=== PATIENT | male | born 1955 | race Caucasian/White ===

== ENCOUNTER → 2017-05-22 | Outpatient (CLI) | payer BC ==
[2017-05-22 08:00] LABS: Basophils % (A) 1 %; CH 28.2; CHCM 34.1; Eosinophils # (A) 0.2 k/uL (0-0.7); Eosinophils % (A) 3 %; HCT 41.6 % (39.0-53.0); HDW 3.23; HGB 13.6 gm/dL (13.0-17.5); Luc # (Auto) 0.14; Luc % (Auto) 2; Lymphocytes % (A) 26 %; MCH 27.2 pg (25.0-35.0); MCHC 32.8 g/dL (31.0-37.0); Mean Platelet Volume 7.2; Monocytes # (A) 0.5 k/uL (0-1.0); Monocytes % (A) 7 %; Neutrophils # (A) 4.8 k/uL (1.3-7.7); Neutrophils % (A) 63 %; RBC 5.01 m/uL (4.30-5.90); RDW 15.1 % (11.5-15.5); WBC 7.6 k/uL (3.8-10.6); WBC (Perox) 7.45
[2017-05-22 08:23] LABS: ALT 29 U/L (21-72); AST 16 U/L (17-59); Alkaline Phosphatase 79 U/L (38-126); Anion Gap 12 mmol/L; Blood Urea Nitrogen 22 mg/dL (9-20); Calcium 9.7 mg/dL (8.4-10.2); Carbon Dioxide 27 mmol/L (22-30); Chloride 103 mmol/L (98-107); Cholesterol 171 mg/dL (<200); Glucose 94 mg/dL (74-99); HDL Cholesterol 34 mg/dL (40-60); Non-African American GFR(MDRD) >60 (>60 ml/min/1.73 sqM); Potassium 4.3 mmol/L (3.5-5.1); Sodium 142 mmol/L (137-145); Total Bilirubin 0.5 mg/dL (0.2-1.3); Total Protein 7.1 g/dL (6.3-8.2)
== END | disposition home or self-care (01) ==
LOC: LABWHC1 07:30
PROVIDERS: ATTEND Family Medicine
DX: Z00.00 Encounter for general adult medical examination without abnormal findings (principal); R21 Rash and other nonspecific skin eruption; D64.9 Anemia, unspecified; Z79.899 Other long term (current) drug therapy
CPT/HCPCS: 36415; 80053; 80061; 84443; 85025

== ENCOUNTER → 2017-09-19 | Outpatient (CLI) | payer BC ==
[2017-09-19 10:32] LABS: Anion Gap 12 mmol/L; Blood Urea Nitrogen 22 mg/dL (9-20); Calcium 9.7 mg/dL (8.4-10.2); Carbon Dioxide 30 mmol/L (22-30); Chloride 103 mmol/L (98-107); Glucose 95 mg/dL (74-99); Potassium 4.4 mmol/L (3.5-5.1); Sodium 145 mmol/L (137-145)
== END | disposition home or self-care (01) ==
LOC: LABWHC1 09:53
PROVIDERS: ATTEND Family Medicine
DX: S72.22XD Displaced subtrochanteric fracture of left femur, subsequent encounter for closed fracture with routine healing (principal); Z23 Encounter for immunization; V83.5XXD Driver of special industrial vehicle injured in nontraffic accident, subsequent encounter
CPT/HCPCS: 36415; 80048

== ENCOUNTER 2017-11-30 08:39 | Emergency (ER) | payer BC ==
[2017-11-30 08:54] VITALS: BP 155/76; PULSE 74; RESP 16; TEMP 98.4
[2017-11-30] MEDS ORDERED: SODIUM CHLORIDE 0.9% 1,000 ML IV STA (09:01)
[2017-11-30 09:35] LABS: Basophils % (A) 1 %; Eosinophils # (A) 0.1 k/uL (0-0.7); Eosinophils % (A) 1 %; HCT 42.6 % (39.0-53.0); HGB 14.2 gm/dL (13.0-17.5); Lymphocytes # (A) 1.3 k/uL (1.0-4.8); Lymphocytes % (A) 18 %; MCH 26.5 pg (25.0-35.0); MCHC 33.4 g/dL (31.0-37.0); MCV 79.2 fL (80.0-100.0); Monocytes # (A) 0.4 k/uL (0-1.0); Monocytes % (A) 6 %; Neutrophils # (A) 5.3 k/uL (1.3-7.7); Neutrophils % (A) 73 %; Platelet Count 225 k/uL (150-450); RBC 5.38 m/uL (4.30-5.90); RDW 14.3 % (11.5-15.5); WBC 7.2 k/uL (3.8-10.6)
[2017-11-30 09:44] LABS: Albumin 4.2 g/dL (3.5-5.0); Calcium 9.6 mg/dL (8.4-10.2); Total Bilirubin 0.5 mg/dL (0.2-1.3); Total Protein 7.1 g/dL (6.3-8.2)
--- NOTE | 2017-11-30 09:44 | XR ---
EXAMINATION TYPE: XR KUB DATE OF EXAM: 11/30/2017 9:30 AM CLINICAL HISTORY: Gross hematuria for 2 days per patient. Abdominal pain not further specified per o rder. TECHNIQUE: Two Upright KUB images of the abdomen are obtained. COMPARISON: None. FINDINGS: Scattered gas is seen in non-distended small bowel loops. Gas and fecal material is seen in non-distended colon. Round and oval densities in pelvis favor phleboliths. There is partial visualiz ation of postsurgical change in the left proximal femur. No pneumoperitoneum is seen. Lung bases are clear. IMPRESSION: Overall nonobstructive bowel gas pattern. No definite nephrolithiasis.
[2017-11-30 09:47] LABS: Partial Thromboplastin Time 23.1 sec (22.0-30.0); Prothrombin Time 10.1 sec (9.0-12.0)
[2017-11-30 09:56] LABS: RBC,Urine >182 /hpf (0-5); WBC,Urine 116 /hpf (0-5)
[2017-11-30 09:59] LABS: Appearance,Urine Bloody (Clear); Color,Urine Red
--- NOTE | 2017-11-30 11:01 | ED ---
Male Urogenital HPI - General Chief complaint: Urogenital Stated complaint: HEMATURIA Time Seen by Provider: 11/30/17 08:55 Source: patient, RN notes reviewed Mode of arrival: ambulatory Limitations: no limitations - History of Present Illness Initial comments: 62-year-old male presents emergency from chief complaint hematuria. Patient dizziness and symptoms yesterday but worsened today. Patient does complain of some pain at the tip of his refill. Patient denies any abdominal pain no flank pain. Patient is not taking any blood thinners. Patient denies any nausea vomiting diarrhea constipation. Denies any melena or hematochezia. Patient states that he's never had any like this in the past. Patient offers no other complaints. - Related Data Home Medications Medication Instructions Recorded Confirmed Allopurinol [Zyloprim] 300 mg PO DAILY 06/03/16 11/30/17 Valsartan/Hydrochlorothiazide 1 tab PO DAILY 06/03/16 11/30/17 [Valsartan-Hctz 160-12.5 mg Tab] Aspirin 81 mg PO DAILY 11/30/17 11/30/17 Previous Rx's Medication Instructions Recorded Ciprofloxacin HCl [Cipro] 500 mg PO Q12HR #14 tablet 11/30/17 Allergies Allergy/AdvReac Type Severity Reaction Status Date / Time No Known Allergies Allergy Verified 11/30/17 09:06 Review of Systems ROS Statement: Those systems with pertinent positive or pertinent negative responses have been documented in the HPI. ROS Other: All systems not noted in ROS Statement are negative. Past Medical History Past Medical History: Hypertension Additional Past Medical History / Comment(s): gout History of Any Multi-Drug Resistant Organisms: None Reported Past Surgical History: Joint Replacement, Orthopedic Surgery Additional Past Surgical History / Comment(s): hand knee replacement femur Smoking Status: Never smoker Past Alcohol Use History: Occasional Past Drug Use History: None Reported General Exam Limitations: no limitations General appearance: alert, in no apparent distress Head exam: Present: atraumatic, normocephalic, normal inspection Neck exam: Present: normal inspection, full ROM. Absent: tenderness, meningismus, lymphadenopathy Respiratory exam: Present: normal lung sounds bilaterally. Absent: respiratory distress, wheezes, rales, rhonchi, stridor Cardiovascular Exam: Present: regular rate, normal rhythm, normal heart sounds. Absent: systolic murmur, diastolic murmur, rubs, gallop, clicks GI/Abdominal exam: Present: soft, normal bowel sounds. Absent: distended, tenderness, guarding, rebound, rigid Back exam: Absent: CVA tenderness (R), CVA tenderness (L) Skin exam: Present: warm, dry, intact, normal color. Absent: rash Course Vital Signs 11/30/17 08:51 Temperature 98.4 F Pulse Rate 74 Respiratory 16 Rate Blood Pressure 155/76 O2 Sat by Pulse 96 Oximetry Medical Decision Making - Medical Decision Making 62-year-old male presented from for hematuria. Patient does have gross hematuria though there is moderate amount of bacteria. Patient has no abdominal pain or flank pain for kidney stone. Patient was treated for urinary tract infection at this time advised to follow-up with urology for cystoscopy and further workup. We did discuss that there is concerns with hematuria for kidney or bladder cancer. This is the importance of following up with urology for further workup. Return parameters were discussed. - Lab Data Result diagrams: 11/30/17 09:10 11/30/17 09:10 Lab Results 11/30/17 11/30/17 11/30/17 Range/Units 09:10 09:10 09:10 WBC 7.2 (3.8-10.6) k/uL RBC 5.38 (4.30-5.90) m/uL Hgb 14.2 (13.0-17.5) gm/dL Hct 42.6 (39.0-53.0) % MCV 79.2 L (80.0-100.0) fL MCH 26.5 (25.0-35.0) pg MCHC 33.4 (31.0-37.0) g/dL RDW 14.3 (11.5-15.5) % Plt Count 225 (150-450) k/uL Neutrophils % 73 % Lymphocytes % 18 % Monocytes % 6 % Eosinophils % 1 % Basophils % 1 % Neutrophils # 5.3 (1.3-7.7) k/uL Lymphocytes # 1.3 (1.0-4.8) k/uL Monocytes # 0.4 (0-1.0) k/uL Eosinophils # 0.1 (0-0.7) k/uL Basophils # 0.0 (0-0.2) k/uL PT 10.1 (9.0-12.0) sec INR 1.0 (<1.2) APTT 23.1 (22.0-30.0) sec Sodium 144 (137-145) mmol/L Potassium 4.0 (3.5-5.1) mmol/L Chloride 103 (98-107) mmol/L Carbon Dioxide 28 (22-30) mmol/L Anion Gap 13 mmol/L BUN 22 H (9-20) mg/dL Creatinine 1.10 (0.66-1.25) mg/dL Est GFR (CKD-EPI)AfAm 83 (>60 ml/min/1.73 sqM) Est GFR (CKD-EPI)NonAf 72 (>60 ml/min/1.73 sqM) Glucose 112 H (74-99) mg/dL Calcium 9.6 (8.4-10.2) mg/dL Total Bilirubin 0.5 (0.2-1.3) mg/dL AST 17 (17-59) U/L ALT 27 (21-72) U/L Alkaline Phosphatase 90 (38-126) U/L Total Protein 7.1 (6.3-8.2) g/dL Albumin 4.2 (3.5-5.0) g/dL Urine Color Urine Appearance (Clear) Urine RBC (0-5) /hpf Urine WBC (0-5) /hpf 11/30/17 Range/Units 09:10 WBC (3.8-10.6) k/uL RBC (4.30-5.90) m/uL Hgb (13.0-17.5) gm/dL Hct (39.0-53.0) % MCV (80.0-100.0) fL MCH (25.0-35.0) pg MCHC (31.0-37.0) g/dL RDW (11.5-15.5) % Plt Count (150-450) k/uL Neutrophils % % Lymphocytes % % Monocytes % % Eosinophils % % Basophils % % Neutrophils # (1.3-7.7) k/uL Lymphocytes # (1.0-4.8) k/uL Monocytes # (0-1.0) k/uL Eosinophils # (0-0.7) k/uL Basophils # (0-0.2) k/uL PT (9.0-12.0) sec INR (<1.2) APTT (22.0-30.0) sec Sodium (137-145) mmol/L Potassium (3.5-5.1) mmol/L Chloride (98-107) mmol/L Carbon Dioxide (22-30) mmol/L Anion Gap mmol/L BUN (9-20) mg/dL Creatinine (0.66-1.25) mg/dL Est GFR (CKD-EPI)AfAm (>60 ml/min/1.73 sqM) Est GFR (CKD-EPI)NonAf (>60 ml/min/1.73 sqM) Glucose (74-99) mg/dL Calcium (8.4-10.2) mg/dL Total Bilirubin (0.2-1.3) mg/dL AST (17-59) U/L ALT (21-72) U/L Alkaline Phosphatase (38-126) U/L Total Protein (6.3-8.2) g/dL Albumin (3.5-5.0) g/dL Urine Color Red Urine Appearance Bloody (Clear) Urine RBC >182 H (0-5) /hpf Urine WBC 116 H (0-5) /hpf Disposition Clinical Impression: Hematuria, UTI (urinary tract infection) Disposition: HOME SELF-CARE Condition: Stable Instructions: Urinary Tract Infection in Men (ED) Additional Instructions: Please return to the Emergency Department if symptoms worsen or any other concerns. Prescriptions: Ciprofloxacin HCl [Cipro] 500 mg PO Q12HR #14 tablet Referrals: Ari Montano MD [Primary Care Provider] - 1-2 days Fareed Montes De Oca MD [STAFF PHYSICIAN] - 1-2 days Time of Disposition: 11:01
== END 2017-11-30 11:26 | disposition home or self-care (01) ==
LOC: EC 08:39
DX: N39.0 Urinary tract infection, site not specified (principal); I10 Essential (primary) hypertension; Z79.82 Long term (current) use of aspirin; Z79.899 Other long term (current) drug therapy
CPT/HCPCS: 36415; 74018; 80053; 81001; 85025; 85610; 85730; 87086; 96360; 96361; 99283

== ENCOUNTER → 2017-12-11 | Outpatient (CLI) | payer BC ==
--- NOTE | 2017-12-11 09:09 | US ---
"EXAMINATION TYPE: US kidneys/renal and bladder DATE OF EXAM: 12/11/2017 COMPARISON: NONE CLINICAL HISTORY: Gross Hematuria R31.0. One episode of gross hematuria 2 weeks ago, and another epid ote this am of gross hematuria. EXAM MEASUREMENTS: Right Kidney: 13.2 x 8.5 x 7.5 cm Left Kidney: 12.6 x 5.8 x 5.3 cm Post Void Residual Volume: 435.0 mL patient states unable to urinate this am. Right Kidney: large solid mass with vascularity measures 6.7 x 6.7 x 6.9 cm Left Kidney: No hydronephrosis or masses seen Bladder: 2.4 x 2.2 x 2.9 cm mass Bilateral Jets seen: no Post Void Residual: 435.0 ml, significant retention. IMPRESSION: 1. Right renal mass may be within the medullary region. This could be within the collecting system. T ransitional cell carcinoma and renal cell carcinoma should be considered. 2. Urinary bladder mass. 3. Additional workup is recommended. Consider contrast CT abdomen pelvis. A [place] level critical message alert has been initiated for Ari Montano MD via the [employer] | Critical Results System on 12/11/2017 9:06 AM. This message alert has been sent to Ari Montano MD via the preferences provided by the clinician for the receipt of Radiology Critical Findings. Nv ssage ID [id number]."
== END | disposition home or self-care (01) ==
LOC: RADUSWWP 08:06
PROVIDERS: ATTEND Family Medicine
DX: N28.89 Other specified disorders of kidney and ureter (principal); N32.89 Other specified disorders of bladder; R31.0 Gross hematuria
CPT/HCPCS: 76770

== ENCOUNTER → 2017-12-17 | Outpatient (CLI) | payer BC ==
--- NOTE | 2017-12-18 11:49 | CT ---
EXAMINATION TYPE: CT urogram wo/w con DATE OF EXAM: 12/17/2017 COMPARISON: Ultrasound kidneys 12/11/2017 HISTORY: Hematuria CT DLP: 3285 mGycm, Automated Exposure Control for Dose Reduction was Utilized. CONTRAST: CT scan of the abdomen and pelvis is performed with oral and without and with IV Contrast, patient in jected with 100 mL of Isovue 300. FINDINGS: There is a small hiatal hernia. LUNG BASES: No significant abnormality is appreciated. LIVER/GB: Liver shows low attenuation possibly due to hepatic steatosis, gallbladder is normal PANCRE : No significant abnormality is seen. SPLEEN: No significant abnormality is seen. ADRENALS: No significant abnormality is seen. KIDNEYS: There is a large lower pole right renal mass which correlates with the ultrasound findings. I mass shows heterogeneous enhancement with central low attenuation following contrast administration , the mass measures approximately 9 cm x 8 cm x 8.5 cm. There is distortion and mass effect on the re nal collecting system and ureter on the right, upper pole collecting system shows hydronephrotic rodriguez ge. No definite thrombus is identified within the inferior vena cava although there is suggestion of some heterogeneous density involving the right renal vein extending towards the inferior vena cava, d ifficult to exclude some tumor thrombus within the right renal vein. Some collateral vasculature is s een at the level of the right renal hilum and medial to the right kidney, some local mass effect pres ent on the inferior vena cava. No evident ureteral calculus. There is some prominence of soft tissue extending along the ureteral course of the proximal and mid extent which is indeterminate on the righ t. BOWEL: The appendix is normal. Diverticular changes associated with the sigmoid colon PROSTATE/SEMINAL VESICLES: The prostate appears enlarged. LYMPH NODES: No greater than 1cm abdominal or pelvic lymph nodes are appreciated. OSSEOUS STRUCTURES: Postop change noted to the left hip. Degenerative disc changes are present in the visualized spine, bilateral spondylolysis present at L5. OTHER: The urinary bladder shows some heterogeneous density towards the right ureterovesical orifice, this may correspond to the mass seen on ultrasound. IMPRESSION: Findings compatible with renal cell carcinoma on the right. Difficult to exclude bladder mass. Findings along the right ureter as described. Additional findings above.
== END | disposition home or self-care (01) ==
LOC: RADCTMAIN 17:31
PROVIDERS: ATTEND Urology
DX: R31.0 Gross hematuria (principal)
CPT/HCPCS: 74178; 74400; Q9967

== ENCOUNTER → 2017-12-22 | Outpatient (CLI) | payer BC ==
[2017-12-22 15:12] LABS: Basophils % (A) 0 %; Eosinophils # (A) 0.2 k/uL (0-0.7); Eosinophils % (A) 2 %; HCT 40.7 % (39.0-53.0); HGB 13.6 gm/dL (13.0-17.5); Lymphocytes # (A) 1.8 k/uL (1.0-4.8); Lymphocytes % (A) 23 %; MCH 26.6 pg (25.0-35.0); MCHC 33.5 g/dL (31.0-37.0); MCV 79.4 fL (80.0-100.0); Mean Platelet Volume 6.8; Monocytes # (A) 0.5 k/uL (0-1.0); Monocytes % (A) 6 %; Neutrophils # (A) 5.4 k/uL (1.3-7.7); Neutrophils % (A) 69 %; Platelet Count 241 k/uL (150-450); RBC 5.12 m/uL (4.30-5.90); RDW 13.9 % (11.5-15.5); WBC 7.9 k/uL (3.8-10.6)
[2017-12-22 15:22] LABS: Appearance,Urine Clear (Clear); Bilirubin,Urine Negative (Negative); Blood,Urine Negative (Negative); Color,Urine Light Yellow; Glucose,Urine (UA) Negative (Negative); Ketones,Urine Negative (Negative); Leukocyte Esterase,Urine Negative (Negative); Nitrite,Urine Negative (Negative); Protein,Urine Negative (Negative); Specific Gravity,Urine 1.007 (1.001-1.035); Urobilinogen,Urine <2.0 mg/dL (<2.0)
[2017-12-22 15:23] LABS: Calcium 9.2 mg/dL (8.4-10.2); Potassium 3.8 mmol/L (3.5-5.1); Total Bilirubin 0.4 mg/dL (0.2-1.3); Total Protein 6.7 g/dL (6.3-8.2)
== END | disposition home or self-care (01) ==
LOC: LABPAT 14:35
PROVIDERS: ATTEND Urology
DX: Z01.812 Encounter for preprocedural laboratory examination (principal); R31.9 Hematuria, unspecified; C64.1 Malignant neoplasm of right kidney, except renal pelvis; I10 Essential (primary) hypertension; R06.02 Shortness of breath; Z79.899 Other long term (current) drug therapy; Z01.818 Encounter for other preprocedural examination
CPT/HCPCS: 36415; 80053; 81003; 85025; 86850; 86900; 86901; 87086; 93005

== ENCOUNTER → 2017-12-22 | Outpatient (CLI) | payer BC ==
--- NOTE | 2017-12-22 16:19 | XR ---
EXAMINATION TYPE: XR chest 2V DATE OF EXAM: 12/22/2017 COMPARISON: pre surgical HISTORY: pre surgical TECHNIQUE: Frontal and lateral views of the chest are obtained. FINDINGS: There is no focal air space opacity, pleural effusion, or pneumothorax seen. The cardiac silhouette size is within normal limits. The osseous structures are intact. IMPRESSION: No acute cardiopulmonary process.
== END | disposition home or self-care (01) ==
LOC: RADXRMAIN 14:14
PROVIDERS: ATTEND Urology
DX: Z01.818 Encounter for other preprocedural examination (principal); I10 Essential (primary) hypertension; R06.02 Shortness of breath
CPT/HCPCS: 71046; 93005

== ENCOUNTER 2017-12-30 05:43 | Inpatient (IN) | payer BC ==
[2017-12-25 17:51] VITALS: BMI 32.8
[~2017-12-30 05:43] MED LIST: Pre Op ABX Message 1 EACH MISC MISCELLANE ONE
[2017-12-30] MEDS ORDERED: MORPHINE SULFATE 4 MG/0.8 ML SYRINGE (INJ) IV PRN (05:58)
[2017-12-30] MEDS ORDERED: ONDANSETRON ODT 4 MG TAB PO ONE (05:58)
[2017-12-30] MEDS ORDERED: MIDAZOLAM 2 MG/2 ML VIAL IV PRN (05:58)
[2017-12-30] MEDS ORDERED: DEXAMETHASONE SOD PHOSPHATE 10 MG/ML 1 ML VIAL IV ONE (05:58)
[2017-12-30] MEDS ORDERED: fentaNYL (PF) 50 MCG/ML 2 ML AMP ONE ×2 (07:09→07:33)
[2017-12-30] MEDS ORDERED: LIDOCAINE 1% 20 ML VIAL (10MG/ML) FOR IV START INTRADERMA ONE (07:10)
[2017-12-30] MEDS: LACTATED RINGERS 1,000 ML IV SCH (07:10)
[2017-12-30] MEDS ORDERED: GLYCOPYRROLATE 0.2 MG/ML 2 ML VIAL ONE (07:33)
[2017-12-30] MEDS ORDERED: PROPOFOL 10 MG/ML 20 ML VIAL IV ONE (07:33)
[2017-12-30] MEDS ORDERED: ONDANSETRON 4 MG/2 ML VIAL ONE (07:33)
[2017-12-30] MEDS ORDERED: ROCURONIUM BROMIDE 10 MG/ML 10 ML VIAL IV ONE (07:33)
[2017-12-30] MEDS ORDERED: SUCCINYLCHOLINE CHLORIDE 100 MG/5 ML SYR IV ONE (07:33)
[2017-12-30] MEDS ORDERED: LIDOCAINE 1% INJ 10MG/ML (20 ML MDV) ONE (07:33)
[2017-12-30] MEDS ORDERED: NEOSTIGMINE 1 MG/ML 10 ML VIAL ONE (07:33)
[2017-12-30] MEDS ORDERED: ePHEDrine SULFATE/0.9% NACL/PF 50 MG/5 ML SYRINGE IV ONE (07:33)
[2017-12-30] MEDS ORDERED: PHENYLEPHRINE-0.9% NACL SYG 1 MG/10 ML SYRINGE ONE (07:33)
[2017-12-30] MEDS ORDERED: MIDAZOLAM 2 MG/2 ML VIAL ONE (07:33)
[2017-12-30] MEDS ORDERED: LACTATED RINGERS 1,000 ML IV ONE ×2 (08:18)
[2017-12-30] MEDS ORDERED: NALOXONE 0.4 MG/ML 1 ML VIAL IV PRN (08:50)
[2017-12-30] MEDS ORDERED: BUPIVACAINE (PF) 0.5% 50 ML, HYDROMORPHONE (PF) 5 MG in SODIUM CHLORIDE 0.9% 200 ML EPIDURAL PRN (08:52)
--- NOTE | 2017-12-30 10:23 | P.OP ---
Date of Procedure: 12/30/17 Preoperative Diagnosis: Right renal mass Postoperative Diagnosis: Same Procedure(s) Performed: Right radical nephrectomy Anesthesia: GETA, epidural Surgeon: Ajit Ortega Activities Leader #1: Fareed Montes De Oca Estimated Blood Loss (ml): 300 Pathology: other (Right kidney) Condition: stable Disposition: PACU Indications for Procedure: The patient is a 62-year-old gentleman with hematuria. Hematuria workup identified a 9 cm anterior middle pole right renal mass. There is no evidence of obvious metastases. He comes for a right radical nephrectomy Description of Procedure: Patient is brought to the operating suite. He is been given an epidural followed by general endotracheal anesthesia. He is prepped and draped sterilely. A Lopez catheters introduced sterilely. A right chevron incision is made. The rectus and oblique fascias are opened. The peritoneum was opened. The liver is inspected and is normal. The kidney and tumor felt in the anterior kidney. The colon was reflected medially by incising its attachments. I do a [place] maneuver to reflect the duodenum medially. I come down on the vena cava. The tumor is easily seen. The vena cava was cleaned off. The gonadal vein is taken between 2-0 silk ties and transected. I March up and identify the right renal vein. The right renal vein is cleaned. A 2-0 silk ties placed around it. Fortunately right renal arteries inferior to the renal vein. It is identified and 2-0 silk ties placed around it and tied. I then doubly ligate the renal vein and transect it. I then doubly ligate the renal artery and transected. There is a lumbar vein that they branched into the kidney that had to be taken between hemoclips. Dissect the lymph node tissue off the vena cava and the body wall on the medial aspect of the kidney. In November inferiorly down to the ureter and gonadal vein and taken between 2-0 silk ties. Posterior and lateral to the kidney and elevated off the posterior peritoneum. I March superiorly the renal vein and dissect the connective tissue and lymphatics between hemoclips. Inferior to the adrenal gland and dissect the kidney off fat using hemoclips. I then detached the kidney from the peritoneum below the liver. He needs delivered from the wound. Us is approximately 300 mL. No obvious positive nodes although there was a fair amount of lymphatic then of the procedure I irrigate thoroughly. Abdomen was closed in 3 layers with #1 Vicryl. The skin is stapled. The patient is awakened and returned recovery room good condition. Blood loss is proximal 300 mL. tissue.
[2017-12-30] MEDS: DEXTROSE 5%-0.45% NACL 1,000 ML IV SCH (12:32)
--- NOTE | 2017-12-31 06:50 | P.PN ---
Subjective Progress Note Date: 12/31/17 The patient is in his first postoperative day from a right radical nephrectomy. His vital signs are stable. His urine output is good. His pain is controlled with epidural catheter. The wound is dry. He is tolerating clear liquids. I will ambulate the patient. He'll use incentive spirometry. We'll continue with clear liquids. Objective - Vital Signs Vital signs: Vital Signs Temp 98.1 F 12/31/17 00:53 Pulse 57 L 12/31/17 00:53 Resp 15 12/31/17 00:55 BP 102/59 12/31/17 00:53 Pulse Ox 96 12/31/17 00:53 Intake & Output 12/30/17 12/30/17 12/31/17 06:59 18:59 06:59 Intake Total 3675 3846 Output Total 700 250 Balance 2975 3596 Weight 95.254 kg Intake: IV 1750 Intake, IV Titration 375 2046 Amount Bupivacaine (Pf) 0.5% 50 46 ml Hydromorphone (Pf) 5 mg In Sodium Chloride 0.9 % 200 ml @ Per Protocol EPIDURAL .Q0M PRN Rx#: [id number] Dextrose 5%-0.45% NaCl 1, 375 2000 000 ml @ 125 mls/hr IV . Q8H RAMÓN Rx#:[id number] Oral 1550 1800 Output: Urine 400 250 Estimated Blood Loss 300 Other: Voiding Method Indwelling Catheter Indwelling Catheter # Voids 350
[2017-12-31] MEDS: DEXTROSE 5%-0.45% NACL 1,000 ML IV SCH ×3 (07:09→17:04)
[2017-12-31] MEDS: LACTATED RINGERS 1,000 ML IV SCH (07:09)
[2017-12-31] MEDS: diphenhydrAMINE 50 MG/ML 1 ML VIAL IVP PRN ×3 (08:20→23:04)
[2017-12-31] MEDS: ALLOPURINOL 300 MG TAB PO SCH (08:23)
[2017-12-31] MEDS: HYDROCHLOROTHIAZIDE 12.5 MG CAP PO SCH (08:24)
[2017-12-31] MEDS: VALSARTAN 160 MG TAB PO SCH (08:24)
--- NOTE | 2017-12-31 10:49 | P.PN ---
Progress Note - Text Date: 12/31/2017 Time: 07:08 The patient is status post, right nephrectomy, postoperative day number 1 The patient has no complaints of nausea vomiting or headache. The patient does not complain of any lower extremity numbness or weakness. The epidural is running at 5 mL per hour. VAS 0-10 The epidural will be maintained and adjusted as needed.
[2017-12-31] MEDS: NICOTINE 14MG/24HR PATCH TRANSDERM SCH (18:08)
[2018-01-01] MEDS: DEXTROSE 5%-0.45% NACL 1,000 ML IV SCH ×3 (04:31→21:22)
[2018-01-01] MEDS: LACTATED RINGERS 1,000 ML IV SCH (04:31)
--- NOTE | 2018-01-01 07:18 | P.PN ---
Progress Note - Text Date: 01/01/18Time: 0708 The patient is status post, right nephrectomy, postoperative day number 2 The patient has no complaints of nausea vomiting or headache. The patient does not complain of any lower extremity numbness or weakness. The epidural is running at 5 mL per hour. VAS 0-10. The epidural will be maintained and adjusted as needed.
--- NOTE | 2018-01-01 07:36 | P.PN ---
Subjective Progress Note Date: 01/01/18 The patient is in his second postoperative day from a right radical nephrectomy. He is doing well. Vital signs are stable. His urine output is good. His pain is controlled with the epidural. His wound looks good. He is tolerated a liquid diet. I will advance his diet to regular diet and he will ambulate. Mildly epidural catheter be removed. I anticipate discharge in 24- 48 hours. Pathology is pending. Objective - Vital Signs Vital signs: Vital Signs Temp 97.7 F 12/31/17 23:10 Pulse 73 12/31/17 23:10 Resp 16 12/31/17 23:10 BP 128/65 12/31/17 23:10 Pulse Ox 95 12/31/17 23:10 Intake & Output 12/31/17 01/01/18 01/01/18 18:59 06:59 18:59 Intake Total 240 1465 Output Total 1100 3210 Balance -860 -1745 Intake: Intake, IV Titration 875 Amount Dextrose 5%-0.45% NaCl 1, 875 000 ml @ 125 mls/hr IV . Q8H [facility] Rx#:[id number] Oral 240 590 Output: Urine 1100 3210 Uretheral (Lopez) 1100 3210 Other: Voiding Method Indwelling Catheter Indwelling Catheter
[2018-01-01] MEDS: HYDROCHLOROTHIAZIDE 12.5 MG CAP PO SCH (08:55)
[2018-01-01] MEDS: NICOTINE 14MG/24HR PATCH TRANSDERM SCH (08:55)
[2018-01-01] MEDS: VALSARTAN 160 MG TAB PO SCH (08:55)
[2018-01-01] MEDS: ALLOPURINOL 300 MG TAB PO SCH (08:55)
[2018-01-01] MEDS: diphenhydrAMINE 50 MG/ML 1 ML VIAL IVP PRN ×2 (15:06→21:36)
[2018-01-02] MEDS: diphenhydrAMINE 50 MG/ML 1 ML VIAL IVP PRN (03:48)
[2018-01-02] MEDS: DEXTROSE 5%-0.45% NACL 1,000 ML IV SCH ×2 (03:50→10:43)
[2018-01-02 07:23] VITALS: PULSE 66; RESP 14; TEMP 99.2
--- NOTE | 2018-01-02 08:21 | P.PN ---
Progress Note - Text Date: 01/02/2018 Time: 07:09 The patient is status post right nephrectomy, postoperative day number[] The patient has no complaints of nausea vomiting or headache. The patient does not complain of any lower extremity numbness or weakness. The epidural is running at[ 5] mL per hour. VAS of 0-10. The epidural will be discontinued this morning, pain meds will be provided to the patient by the service.
[2018-01-02 08:41] VITALS: BP 127/80
[2018-01-02] MEDS: ALLOPURINOL 300 MG TAB PO SCH (08:42)
[2018-01-02] MEDS: VALSARTAN 160 MG TAB PO SCH (08:42)
[2018-01-02] MEDS: HYDROCHLOROTHIAZIDE 12.5 MG CAP PO SCH (08:42)
[2018-01-02] MEDS: NICOTINE 14MG/24HR PATCH TRANSDERM SCH (08:42)
[2018-01-02] MEDS ORDERED: HYDROcodone/APAP 5-325MG 1 EACH TAB PO PRN (10:01)
--- NOTE | 2018-01-02 10:05 | P.DS ---
Providers Date of admission: 12/30/17 05:43 Attending physician: Ajit Ortega Primary care physician: Ari Jefferson Hospital Course: The patient was admitted the hospital for surgery to a right renal mass. He underwent a right radical nephrectomy without difficulty. This was done 2017. His diet has been advanced and tolerated. His pain is been under control with an epidural and is been switched to oral medication. His wound is healing nicely. The catheter be removed this morning if he voids okay will be discharged home later today. Discharge home care of family regular diet limited activity. His postoperative laboratory examination is appropriate. He' ll be given a prescription for [place]. He'll follow-up in the office next week for staple removal. Pathology report is pending upon discharge. Patient Condition at Discharge: Good Plan - Discharge Summary Discharge Rx Participant: No New Discharge Prescriptions: New HYDROcodone/APAP 5-325MG [[place] 5-325] 1 tab PO Q4HR PRN #18 tab PRN Reason: Pain Control No Action Allopurinol [Zyloprim] 300 mg PO DAILY Valsartan/Hydrochlorothiazide [Valsartan-Hctz 160-12.5 mg Tab] 1 tab PO DAILY Discharge Medication List Allopurinol [Zyloprim] 300 mg PO DAILY 06/03/16 [History] Valsartan/Hydrochlorothiazide [Valsartan-Hctz 160-12.5 mg Tab] 1 tab PO DAILY [History] HYDROcodone/APAP 5-325MG [[place] 5-325] 1 tab PO Q4HR PRN #18 tab 01/02/18 [Rx] Follow up Appointment(s)/Referral(s): Ajit Ortega MD [STAFF PHYSICIAN] - 01/07/18 Discharge Disposition: HOME SELF-CARE
--- NOTE | 2018-01-05 12:33 | CDI ---
Last Revision, August 2017 Documentation Clarification Form Date: 01/05/18 From: Lucy Granado Phone: If you have a question regarding this query, please contact Carrol Woo at [phone] between 8am and 5pm Admit Date: 12/30/2017 5:43:00 AM Patient Name: Dago Zelaya Visit Number: [id number] Discharge Date: 01/02/18 ATTENTION: The Clinical Documentation Specialists (CDI) and [facility] Coding Staff appreciate your assistance in clarifying documentation. Please respond to the clarification below the line at the bottom and electronically sign. The CDI & [facility] Coding staff will review the response and follow-up if needed. Please note: Queries are made part of the Legal Health Record. If you have any questions, please contact the author of this message via ITS. Dr. 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 Two hilar lymph nodes negative for metastasis. Documentation states: Right renal mass. Clinical Indicators: Urinary frequency, dysuria and hematuria. Treatment: Right radical nephrectomy In your professional opinion, can you clarify the diagnosis related to the above findings? Renal mass benign Renal cell carcinoma Other (please specify) Unable to determine renal cell carcinoma MTDD
== END 2018-01-02 15:48 | disposition home or self-care (01) | DRG 658 ==
LOC: 2ORMAIN 05:43 → 3SUR 10:32
PROVIDERS: ADMIT Urology; ATTEND Urology
PROC: 0TT00ZZ Resection of Right Kidney, Open Approach (ICD-10-PCS; principal; 2017-12-30 07:30)
DX: C64.1 Malignant neoplasm of right kidney, except renal pelvis (principal); I10 Essential (primary) hypertension; F17.210 Nicotine dependence, cigarettes, uncomplicated; K21.9 Gastro-esophageal reflux disease without esophagitis; M10.9 Gout, unspecified; Z79.82 Long term (current) use of aspirin; Z79.899 Other long term (current) drug therapy; Z96.652 Presence of left artificial knee joint; Z80.51 Family history of malignant neoplasm of kidney
CPT/HCPCS: 86850; 86900; 86901; 88307

== ENCOUNTER → 2018-05-29 | Outpatient (CLI) | payer BC ==
[2018-05-29 10:16] LABS: T4, Free (Free Thyroxine) 0.67 ng/dL (0.78-2.19)
[2018-05-29 10:30] LABS: Prostate Specific Antigen 3.09 ng/mL (0.00-4.00)
[2018-05-29 10:35] LABS: Potassium 5.3 mmol/L (3.5-5.1)
[2018-05-29 10:36] LABS: Total Bilirubin 0.8 mg/dL (0.2-1.3); Total Protein 7.1 g/dL (6.3-8.2); Uric Acid 6.7 mg/dL (3.5-8.5)
[2018-05-29 10:49] LABS: Basophils % (A) 1 %; Eosinophils # (A) 0.2 k/uL (0-0.7); Eosinophils % (A) 3 %; HCT 40.1 % (39.0-53.0); HGB 13.3 gm/dL (13.0-17.5); Lymphocytes # (A) 1.3 k/uL (1.0-4.8); Lymphocytes % (A) 22 %; MCH 28.1 pg (25.0-35.0); MCHC 33.2 g/dL (31.0-37.0); MCV 84.6 fL (80.0-100.0); Mean Platelet Volume 8.8; Monocytes # (A) 0.5 k/uL (0-1.0); Monocytes % (A) 8 %; Neutrophils % (A) 66 %; Platelet Count 173 k/uL (150-450); RBC 4.73 m/uL (4.30-5.90); RDW 14.1 % (11.5-15.5); WBC 6.2 k/uL (3.8-10.6)
== END | disposition home or self-care (01) ==
LOC: LABWHC1 08:23
PROVIDERS: ATTEND Family Medicine
DX: Z00.00 Encounter for general adult medical examination without abnormal findings (principal); I10 Essential (primary) hypertension; Z51.81 Encounter for therapeutic drug level monitoring; Z12.5 Encounter for screening for malignant neoplasm of prostate
CPT/HCPCS: 36415; 80053; 80061; 84153; 84439; 84443; 84550; 85025

== ENCOUNTER → 2018-08-24 | Outpatient (CLI) | payer BC ==
--- NOTE | 2018-08-24 15:37 | XR ---
EXAMINATION TYPE: XR chest 2V DATE OF EXAM: 08/24/2018 COMPARISON: 12/22/2017 TECHNIQUE: PA and lateral views submitted. HISTORY: Follow-up nephrectomy FINDINGS: The lungs are clear and there is no pneumothorax, pleural effusion, or focal pneumonia. Hypertrophi c and degenerative change of the vertebral column. Atherosclerotic change of the aorta. Hyperinflatio n suggests COPD. IMPRESSION: 1. No acute process.
== END | disposition home or self-care (01) ==
LOC: RADXRMAIN 14:53
PROVIDERS: ATTEND Urology
DX: D41.00 Neoplasm of uncertain behavior of unspecified kidney (principal)
CPT/HCPCS: 71046

== ENCOUNTER → 2019-03-15 | Outpatient (CLI) | payer BC ==
--- NOTE | 2019-03-15 15:56 | XR ---
EXAM TYPE: LUMBAR SPINE X RAY SERIES COMPARISON: NONE HISTORY: Lower back pain TECHNIQUE: 4 views are submitted. FINDINGS: Alignment is anatomic. The pedicles are intact. The transverse processes are intact. There is no s pondylolysis or spondylolisthesis. Surgical clips are seen in the abdomen. There is multilevel hyper trophic and degenerative change. Spina bifida occulta lumbosacral junction. Anterior hypertrophic spu rring noted. IMPRESSION: 1. Multilevel hypertrophic and degenerative disc disease. Foraminal encroachment L4-5 and L5-S1 suspe cted. Recommend follow-up MRI..
== END | disposition home or self-care (01) ==
LOC: RADXRMAIN 15:35
PROVIDERS: ATTEND Family Medicine
DX: M51.36 Other intervertebral disc degeneration, lumbar region (principal)
CPT/HCPCS: 72110

== ENCOUNTER → 2019-05-20 | Outpatient (CLI) | payer BC ==
[2019-05-20 17:12] LABS: HCT 39.5 % (39.0-53.0); HGB 13.7 gm/dL (13.0-17.5); MCH 28.9 pg (25.0-35.0); MCHC 34.6 g/dL (31.0-37.0); MCV 83.4 fL (80.0-100.0); Mean Platelet Volume 6.7; Platelet Count 240 k/uL (150-450); RBC 4.74 m/uL (4.30-5.90); RDW 14.2 % (11.5-15.5); WBC 9.2 k/uL (3.8-10.6)
[2019-05-20 17:17] LABS: Albumin 4.3 g/dL (3.5-5.0); Calcium 9.1 mg/dL (8.4-10.2); Potassium 4.2 mmol/L (3.5-5.1); Total Bilirubin 0.4 mg/dL (0.2-1.3); Total Protein 7.1 g/dL (6.3-8.2)
--- NOTE | 2019-05-20 17:29 | XR ---
EXAMINATION TYPE: XR chest 2V DATE OF EXAM: 05/20/2019 COMPARISON: Prior chest x-ray dated 08/24/2018 HISTORY: Bladder cancer TECHNIQUE: Frontal and lateral views of the chest are obtained. FINDINGS: There is no focal air space opacity, pleural effusion, or pneumothorax seen. The cardiac silhouette size is within normal limits. The osseous structures are intact. IMPRESSION: No acute cardiopulmonary process.
--- NOTE | 2019-05-22 20:35 | CT ---
EXAMINATION TYPE: CT abdomen pelvis wo con DATE OF EXAM: 05/20/2019 COMPARISON: 12/17/2017 HISTORY: 63-year-old male f/u renal and bladder ca CT DLP: 971.3 mGycm. Automated exposure control for dose reduction was used. TECHNIQUE: Contiguous axial scanning of the abdomen and pelvis without IV contrast. Coronal and sagit leonard reconstructions performed. FINDINGS: Heart normal size without pericardial effusion. Lung bases clear without pleural effusion. Tiny hernia. Lack of IV contrast limits assessment of the solid abdominal viscera, lymph nodes, and vascular struc tures. Noncontrast appearance of the liver, gallbladder, adrenal glands, left kidney, and pancreas show no g ross abnormality. Spleen upper limits of normal in size at 13.3 cm. Right kidney is surgically absent. Multiple surgical clips in the nephrectomy bed and paracaval regio n. No suspicious nodularity in the nephrectomy bed. Scattered numerous nonenlarged and borderline to mildly enlarged mesenteric lymph nodes are unchanged measuring up to 1 cm refer to coronal image 40. No progressive lymphadenopathy. Small ventral midline supraumbilical omental fat-containing hernia measures 3.5 cm wide with the abdo quan wall defect measuring 1.8 cm wide. No dilated small bowel, free fluid, or free air. Normal appendix. Mild stool burden. Sigmoid diverticulosis. No pericolonic inflammatory change. Bladder partially distended. Prostate gland measures 4.9 cm wide. Multiple pelvic phleboliths. No abn ormal fluid collection in the pelvis or pelvic lymphadenopathy. Scattered small iliac chain lymph nod es are unchanged. Bones: Antegrade intramedullary nail within the proximal left femur with hip screw fixation. Mild deg enerative change of both hips and SI joints. Bilateral L5 pars defects with grade 1 anterolisthesis a t L5-S1. Superior endplate fracture of T12 new from 12/17/2017 and not clearly seen on 03/15/2019 radiog raph. No retropulsion into the spinal canal. Overall 15 % anterior height loss. No significant surrou nding paravertebral hematoma or swelling. IMPRESSION: 1. Status post right nephrectomy. No CT evidence for locoregional recurrence. Limited overall assess ment due to lack of IV contrast. 2. Scattered nonenlarged and borderline sized mesenteric lymph nodes are unchanged from 12/17/2017 [place]ellogg ggesting chronic postinflammatory etiology. 3. Small omental fat-containing supraumbilical hernia measuring 3.5 cm wide. 4. Sigmoid diverticulosis. 5. Superior endplate fracture of T12 not clearly seen on the 03/15/2019 radiographs. Possibly a subacu te fracture given the lack of surrounding soft tissue swelling. Overall 15% height loss without retro pulsion. Clinically correlate.
== END | disposition home or self-care (01) ==
LOC: RADCTMAIN 15:27
PROVIDERS: ATTEND Urology
DX: C67.1 Malignant neoplasm of dome of bladder (principal); K57.30 Diverticulosis of large intestine without perforation or abscess without bleeding; K42.9 Umbilical hernia without obstruction or gangrene; Z90.5 Acquired absence of kidney
CPT/HCPCS: 36415; 71046; 74176; 80053; 85027

== ENCOUNTER → 2021-05-11 | Outpatient (CLI) | payer BC ==
[2021-05-11 08:48] LABS: Basophils % (A) 1 %; Eosinophils # (A) 0.1 k/uL (0-0.7); Eosinophils % (A) 2 %; HCT 42.1 % (39.0-53.0); HGB 14.5 gm/dL (13.0-17.5); Lymphocytes # (A) 1.5 k/uL (1.0-4.8); Lymphocytes % (A) 19 %; MCH 29.6 pg (25.0-35.0); MCHC 34.3 g/dL (31.0-37.0); MCV 86.3 fL (80.0-100.0); Mean Platelet Volume 7.1; Monocytes # (A) 0.5 k/uL (0-1.0); Monocytes % (A) 7 %; Neutrophils # (A) 5.3 k/uL (1.3-7.7); Neutrophils % (A) 70 %; Platelet Count 228 k/uL (150-450); RBC 4.88 m/uL (4.30-5.90); WBC 7.6 k/uL (3.8-10.6)
[2021-05-11 09:00] LABS: Uric Acid 6.8 mg/dL (3.5-8.5)
[2021-05-11 12:01] LABS: Chol/HDL Ratio 4.53; LDL Cholesterol,Calculated 94.8 mg/dL (0.0-131.0); VLDL Calculation 18.2 mg/dL (5.00-40.00)
[2021-05-11 12:09] LABS: PSA Annual Screen 3.6 ng/mL (0.0-4.0)
== END | disposition home or self-care (01) ==
LOC: LAB 08:32
PROVIDERS: ATTEND Family Medicine
DX: Z00.00 Encounter for general adult medical examination without abnormal findings (principal); Z13.220 Encounter for screening for lipoid disorders; Z13.31 Encounter for screening for depression; Z12.12 Encounter for screening for malignant neoplasm of rectum; Z71.3 Dietary counseling and surveillance; Z71.82 Exercise counseling
CPT/HCPCS: 80061; 87522; 84443; 84550; 85025; G0103

== ENCOUNTER → 2021-10-04 | Outpatient (CLI) | payer BC ==
--- NOTE | 2021-10-06 20:51 | CT ---
EXAMINATION TYPE: CT knee RT ANGELICA bueno protocol DATE OF EXAM: 10/04/2021 COMPARISON: No radiographic correlation available HISTORY: 66-year-old male M17.11 Right knee osteoarthritis. TECHNIQUE: Contiguous axial scanning of the right knee, right hip, and right ankle without IV contras t. Coronal and sagittal reconstructions performed. Imaging performed for surgical planning purposes. CT DLP: 674.9 mGycm Automated exposure control for dose reduction was used. FINDINGS: Right hip: Prostatomegaly is 5.1 cm wide. Multiple pelvic phleboliths. Sigmoid diverticulosis. Mild degenerative change of both hips. Partially visualized antegrade intramedullary nail and screw fixation left hip. Bone island right femoral head. Right knee: Small knee joint effusion. Tricompartmental degenerative change. Greatest degree of joint space narro wing with marginal spurring, subchondral sclerosis, and subchondral cystic changes present in the med ial compartment. The medial meniscus may be torn and extruded. At least moderate degenerative change along the lateral aspect of the patellofemoral compartment with marginal spurring in association narr owing. Degenerative spurring of the lateral compartment. Extensor mechanism intact. Right ankle: Small posterior and plantar heel spurs. Tibiotalar joint is intact. Smooth delineation of the [place] s tendon. IMPRESSION: TRICOMPARTMENTAL OSTEOARTHROSIS, MODERATE TO SEVERE IN THE MEDIAL COMPARTMENT AND MODERATE TO SEVERE ALONG THE LATERAL ASPECT OF THE PATELLOFEMORAL COMPARTMENT. IMAGING FOR SURGICAL PLANNING PURPOSES.
== END | disposition home or self-care (01) ==
LOC: RADCTMAIN 15:30
PROVIDERS: ATTEND Orthopaedic Surgery
DX: Z01.818 Encounter for other preprocedural examination (principal); M17.11 Unilateral primary osteoarthritis, right knee

== ENCOUNTER → 2021-10-05 | Outpatient (CLI) | payer BC ==
[2021-10-05 10:36] LABS: Partial Thromboplastin Time 24.7 sec (22.0-30.0)
[2021-10-05 11:31] LABS: Appearance,Urine Clear (Clear); Bilirubin,Urine Negative (Negative); Blood,Urine Negative (Negative); Color,Urine Yellow; Glucose,Urine (UA) Negative (Negative); Ketones,Urine Negative (Negative); Leukocyte Esterase,Urine Trace (Negative); Mucus,Urine Rare /hpf; Nitrite,Urine Negative (Negative); Protein,Urine Negative (Negative); RBC,Urine <1 /hpf (0-5); Specific Gravity,Urine 1.023 (1.001-1.035); Squamous Epithelial Cell,Urine <1 /hpf (0-4); Urobilinogen,Urine <2.0 mg/dL (<2.0); WBC,Urine 5 /hpf (0-5)
[2021-10-05 16:15] LABS: INR 0.9 (<1.2); Prothrombin Time 10.3 sec (9.0-12.0)
[2021-10-05 19:01] LABS: HCT 42.8 % (39.6-50.0); HGB 13.6 g/dL (13.0-17.0); MCH 27.7 pg (27.0-32.0); MCHC 31.8 g/dL (32.0-37.0); MCV 87.2 fL (80.0-97.0); Platelet Count 239 X 10*3/uL (140-440); RBC 4.91 X 10*6/uL (4.40-5.60); RDW 13.2 % (11.5-14.5); WBC 6.58 X 10*3/uL (4.50-10.00)
[2021-10-05 19:06] LABS: African American GFR (CKD) 47.3 (60.0-200.0); Albumin 4.1 g/dL (3.8-4.9); Albumin/Globulin Ratio 1.54 (1.60-3.17); Anion Gap 12.4 mmol/L (10.00-18.00); BUN/Creat Ratio 16.05 Ratio (12.00-20.00); Blood Urea Nitrogen 27.6 mg/dL (9.0-27.0); Calcium 9.1 mg/dL (8.7-10.3); Carbon Dioxide 23.4 mmol/L (20.0-27.5); Globulin 2.6 g/dL (1.6-3.3); Non-African American GFR(CKD) 40.8 (60.0-200.0); Potassium 3.8 mmol/L (3.5-5.5); Total Bilirubin 0.3 mg/dL (0.30-1.20); Total Protein 6.7 g/dL (6.2-8.2)
== END | disposition home or self-care (01) ==
LOC: LABPAT 09:11
PROVIDERS: ATTEND Orthopaedic Surgery
DX: Z01.812 Encounter for preprocedural laboratory examination (principal); M17.11 Unilateral primary osteoarthritis, right knee
CPT/HCPCS: 80053; 81001; 85027; 85610; 85730; 87070; 93005

== ENCOUNTER 2021-10-25 08:48 | Day surgery (SDC) | payer BC ==
[2021-10-23 10:40] VITALS: BMI 32.8
[~2021-10-25 08:48] MED LIST changes: +ACETAMINOPHEN TAB 500 MG TAB PO PRN; +DEXAMETHASONE SOD PHOSPHATE 10 MG/ML 1 ML VIAL IV PRN; +DOCUSATE 100 MG CAP PO PRN; +FAMOTIDINE 20 MG/2 ML VIAL IVP PRN; +KETOROLAC 15 MG/ML 1 ML VIAL IVP PRN; +LACTATED RINGERS 1,000 ML IV SCH; +MIDAZOLAM 2 MG/2 ML VIAL IV PRN; +ONDANSETRON 4 MG/2 ML VIAL IVP PRN; -Pre Op ABX Message 1 EACH MISC MISCELLANE ONE; +TRANEXAMIC ACID 1,000 MG in SODIUM CHLORIDE 0.9% 100 ML IVPB PRN; +VANCOMYCIN 1,000 MG in SODIUM CHLORIDE 0.9% 250 ML IVPB PRN; +oxyCODONE ER 10 MG TAB.ER.12H PO PRN
[2021-10-25] MEDS ORDERED: MIDAZOLAM 2 MG/2 ML VIAL IVP ONE (10:00)
[2021-10-25] MEDS ORDERED: fentaNYL (PF) 50 MCG/ML 2 ML AMP IVP ONE (10:00)
[2021-10-25] MEDS ORDERED: SUCCINYLCHOLINE CHLORIDE 100 MG/5 ML SYR IV ONE (10:51)
[2021-10-25] MEDS ORDERED: ROPIVACAINE 5 MG/ML 30 ML VIAL ONE (10:51)
[2021-10-25] MEDS ORDERED: SODIUM CHLORIDE 0.9% (PF) 10 ML VIAL ONE (10:51)
[2021-10-25] MEDS ORDERED: TRANEXAMIC ACID 1,000 MG/10 ML VIAL ONE (10:51)
[2021-10-25] MEDS ORDERED: PROPOFOL 10 MG/ML 20 ML VIAL IV ONE (10:51)
[2021-10-25] MEDS ORDERED: MIDAZOLAM 2 MG/2 ML VIAL ONE (10:51)
[2021-10-25] MEDS ORDERED: LIDOCAINE 1% INJ 10MG/ML (20 ML MDV) ONE (10:51)
[2021-10-25] MEDS ORDERED: fentaNYL (PF) 50 MCG/ML 2 ML AMP ONE (10:51)
[2021-10-25] MEDS ORDERED: ePHEDrine 50 MG/ML 1 ML VIAL ONE (10:51)
--- NOTE | 2021-10-25 11:08 | P.ANPRN ---
Procedure Note - Anesthesia - Nerve Block Performed Right Adductor Canal Time Out Performed: Yes (:59) Date of Procedure: 10/25/21 Procedure Start Time: Procedure Stop Time: :08 Location of Patient: PreOp Indication: Acute Post-Operative Pain, Requested by Surgeon (Dr Powell) Sedation Type: Sedate with meaningful contact maintained Preparation: Sterile Prep Position: Supine Catheter: None Needle Types: Pajunk Needle Gauge: 21 Ultrasound used to visualize needle placement: Yes Ultrasound used to observe medication spread: Yes Injectate: 0.5% Ropivacaine (see comment for volume) (15cc + 5cc PF Normal saline) Blood Aspirated: No Pain Paresthesia on Injection Noted: No Resistance on Injection: Normal Image Stored and Saved: Yes Events: Uneventful and Well Tolerated
--- NOTE | 2021-10-25 11:09 | P.ANPRN ---
Procedure Note - Anesthesia - Nerve Block Performed Right iPack Date of Procedure: 10/25/21 Procedure Start Time: 11:09 Procedure Stop Time: 11:17 Location of Patient: PreOp Indication: Acute Post-Operative Pain, Requested by Surgeon (Dr Powell) Sedation Type: Sedate with meaningful contact maintained Preparation: Sterile Prep Position: Supine Catheter: None Needle Types: Pajunk Needle Gauge: 21 Ultrasound used to visualize needle placement: Yes Ultrasound used to observe medication spread: Yes Injectate: 0.5% Ropivacaine (see comment for volume) (15cc + 5cc PF Normal sa line) Blood Aspirated: No Pain Paresthesia on Injection Noted: No Resistance on Injection: Normal Image Stored and Saved: Yes Events: Uneventful and Well Tolerated
[2021-10-25] MEDS ORDERED: ceFAZolin 3,000 MG in SODIUM CHLORIDE 0.9% IRRIGATIO 3,000 ML IRRIGATION ONE (11:15)
--- NOTE | 2021-10-25 13:07 | P.OP ---
Date of Procedure: 10/25/21 Preoperative Diagnosis: 1. Right knee osteoarthritis, severe Postoperative Diagnosis: same Procedure(s) Performed: Right total knee arthroplasty Implants: 1. [place] triathlon CR size #4 femur 2. [place] triathlon size #4 universal tibial baseplate 3. [place] triathlon CS 10 mm polyethylene liner 4. Amanda triathlon 32 mm all polyethylene asymmetric patellar button Anesthesia: REUBENA, regional Surgeon: Jamie Powell Amr Physician #1: Stella Moore Estimated Blood Loss (ml): 100 IV fluids (ml): 1,200 Pathology: none sent Condition: stable Disposition: PACU Indications for Procedure: The patient is a very pleasant previously healthy 66-year-old male with a long- standing history of problems with his right knee. He failed over 1 year of nonsurgical treatment and had continued incapacitating and severe right knee pain due to severe arthritis. He met with me in the office to discuss treatment options. We discussed continued nonsurgical treatment versus surgery. Since it felt over 1 year nonsurgical treatment the patient requested to proceed with a total knee arthroplasty. We discussed the potential risks and complications at length in the office including but certainly not limited to risks of anesthesia, delayed wound healing, superficial wound necrosis, damage to local blood vessels or nerves, superficial infection, deep infection, stiffness, instability, aseptic loosening, patellofemoral complications, swelling, continued or worsened pain, need for further surgery, and inability to regain preinjury level of function, DVT, PE, other medical complications, dissatisfaction with surgical outcome, and possibly loss of life or limb. The patient voiced his understanding that while these are the most common complications other less common complications are possible. He provided his verbal and written consent to go forward with surgery. Description of Procedure: The patient was identified in preoperative holding and the correct operative extremity was verified and marked with a marker. I reviewed the consent form with the patient at length. All of their questions were answered. The patient was given a block by anesthesia. They were then brought back to the operating room. They were transferred onto the operating room table where a general anesthetic, preoperative antibiotics, and tranexamic acid were administered by anesthesia. A tourniquet was applied to the proximal aspect of the operative extremity. The contralateral extremity was padded under the heel and secured to the operating room table with a nonsterile blue towel and tape. The ipsilateral arm was carefully draped across the patient's chest and secured with a pillow and foam. A post was applied over the lateral aspect of the ipsilateral thigh and a bolster was placed under the ipsilateral foot. I verified that the operative extremity was stable and the knee was flexed to 90. The operative extremity was then placed in a leg gao, nonsterile drapes were applied, and the extremity was prepped and draped sterilely in the standard sterile fashion. Prior to starting surgery timeout was performed identifying the correct patient, operative extremity, and procedure. The leg was then elevated, exsanguinated with an Esmarch bandage, and the tourniquet was inflated. An anterior midline incision was made sharply with a scalpel. Once I had dissected deep to the superficial fascial layer medial and lateral flaps were elevated. A medial parapatellar arthrotomy was created. Upon opening the knee joint there were diffuse arthritic changes in all 3 compartments. The anterior horn of the medial meniscus were sharply released and a medial release was performed around the posterior medial corner of the knee to facilitate retractor placement. The fat pad was excised with electrocautery. The patella was found to be severely arthritic and a provisional cut was made with a sagittal saw to facilitate mobilization of the extensor mechanism during the procedure. Remnants of the ACL and PCL were then excised from the notch. 4 mm pins were then placed within the incision in the medial distal femur and proximal tibia. Arrays were applied to the pins and I verified they were completely tightened. The knee was then registered with the [employer] robot and manipulations in implant position were made to balance the knee and opitmize implant position. Using the Jake robotic saw all cuts were made in accordance with our plan. After all bony fragments had been removed the cuts were verified with the planar probe. The tibia was then subluxed forward and sized. The knee was brought into flexion and a lamina operations administrator was placed to allow removal of the meniscal remnants both medially and laterally as well as posterior osteophytes. Local anesthetic was then infiltrated around the joint capsule. Trial implants were then placed within the knee. Range of motion and collateral ligament tension was then evaluated. Adjustments in implant size and position were then made accordingly. Once the knee was felt to be appropriately balanced the Jake pins were removed. The patella was then recut, sized, and punched. A trial patellar button was then placed. With the trial components in place, the patella tracked midline. The femur was then drilled and the trial component removed. The trial tibial component was then appropriately rotated, pinned, and prepared for the keel. All trial components were then removed from the knee. The knee was thoroughly irrigated with pulsatile lavage. Cement was prepared via vacuum mixing in a bowl on the back table. I then hand pressurized cement into the femur and tibia and placed the implants beginning with the tibial base tray and poly liner, femoral component, and finally the patellar button. All extruded cement was removed including from the pin sites. Once the cement had hardened the knee was evaluated one final time with the final polyethylene liner in place. The knee had full extension and flexion and felt stable to varus and valgus stress throughout the arc of motion. The tourniquet was released and with the tourniquet down the patella tracked midline. All bleeders were controlled with electrocautery. The knee was then soaked for 3 minutes with a dilute Betadine soak. The knee was thoroughly irrigated using 3 L of sterile saline and pulsatile lavage. A deep drain was placed. The extensor mechanism was then reapproximated using pop off Vicryl sutures followed by a running barbed suture. The knee was then closed in layers with a 0 strata fix for the deep fascial layer, 2-0 strata fix for the superficial subcutaneous layer and Monocryl and Steri-Strips for the skin. A sterile dressing and drain sponge were applied. I verified that all instrument, sponge, and sharp counts were correct. The patient was then transferred off the operating room table, extubated, and brought to recovery having tolerated the procedure well. Stella Moore PA-C was required as a skilled geriatric assistant due to the complexity of the procedure for patient positioning, draping, retraction, placement of hardware, and closure of wound. PLAN: The patient can weight-bear as tolerated on the operative extremity. DVT prophylaxis with aspirin 81 mg twice a day based on preoperative risk stratification. Follow-up in the office in 2 weeks for wound check and x-rays of the knee including an AP and lateral.
[2021-10-25] MEDS ORDERED: NALOXONE 0.4 MG/ML 1 ML VIAL IV PRN (13:30)
[2021-10-25] MEDS ORDERED: bisacodyL 10 MG SUPP RECTAL PRN (13:30)
[2021-10-25] MEDS ORDERED: HYDROmorphone 1 MG/ML 1 ML SYRINGE IVP PRN (13:30)
[2021-10-25] MEDS ORDERED: HYDROmorphone 0.2 MG/1 ML SYRINGE IVP PRN ×2 (13:30)
[2021-10-25] MEDS ORDERED: MAGNESIUM HYDROXIDE 2,400 MG/10 ML CUP PO PRN (13:30)
[2021-10-25] MEDS ORDERED: NA PHOS,M-B/NA PHOS,DI-BA 133 ML ENEMA RECTAL PRN (13:30)
[2021-10-25] MEDS ORDERED: ONDANSETRON 4 MG/2 ML VIAL IVP PRN (13:30)
[2021-10-25] MEDS ORDERED: TEMAZEPAM 15 MG CAP PO PRN (13:30)
[2021-10-25] MEDS: HYDROmorphone 0.5 MG/0.5 ML SYRINGE IVP PRN ×4 (13:36→14:26)
--- NOTE | 2021-10-25 14:02 | XR ---
EXAMINATION TYPE: XR knee limited RT DATE OF EXAM: 10/25/2021 COMPARISON: NONE TECHNIQUE: Two views submitted HISTORY: Post op FINDINGS: There is a prosthetic knee in near anatomic alignment. There is soft tissue edema and emphysema. [place] rgical drain noted. IMPRESSION: 1. Postoperative change. Appears in near-anatomic alignment
[2021-10-25] MEDS: LACTATED RINGERS 1,000 ML IV SCH (17:30)
[2021-10-25] MEDS: HYDROcodone/APAP 7.5-325MG 1 EACH TAB PO PRN (17:35)
[2021-10-25] MEDS: ASPIRIN 81 MG PO SCH (19:19)
[2021-10-25] MEDS ORDERED: SENNOSIDES-DOCUSATE SODIUM 1 EACH TAB PO SCH (21:00)
[2021-10-26] MEDS: HYDROcodone/APAP 7.5-325MG 1 EACH TAB PO PRN ×3 (03:03→13:14)
[2021-10-26] MEDS: LACTATED RINGERS 1,000 ML IV SCH ×2 (03:14→08:14)
[2021-10-26 07:19] VITALS: BP 124/67; PULSE 66; RESP 18; TEMP 97.4
[2021-10-26] MEDS: ASPIRIN 81 MG PO SCH (08:13)
[2021-10-26 08:54] LABS: Basophils # (A) 0.02 X 10*3/uL (0.00-0.10); Basophils % (A) 0.1 %; Eosinophils # (A) 0 X 10*3/uL (0.04-0.35); Eosinophils % (A) 0 %; HCT 36.8 % (39.6-50.0); HGB 12.1 g/dL (13.0-17.0); Immature Grans, Automated 0.2 %; Lymphocytes # (A) 0.83 X 10*3/uL (0.90-5.00); MCH 28.3 pg (27.0-32.0); MCHC 32.9 g/dL (32.0-37.0); MCV 86.2 fL (80.0-97.0); Mean Platelet Volume 9.8 fL (9.5-12.2); Monocytes # (A) 1.11 X 10*3/uL (0.20-1.00); Monocytes % (A) 6.8 %; NRBC Per 100 WBC 0 /100 WBCS (0.0-0.0); Neutrophils # (A) 14.44 X 10*3/uL (1.80-7.70); Neutrophils % (A) 87.9 %; Platelet Count 227 X 10*3/uL (140-440); RBC 4.27 X 10*6/uL (4.40-5.60); RDW 13.4 % (11.5-14.5); WBC 16.44 X 10*3/uL (4.50-10.00)
[2021-10-26] MEDS ORDERED: MELOXICAM 7.5 MG TAB PO SCH (09:00)
--- NOTE | 2021-10-26 10:33 | P.DS ---
Providers Expected date of discharge: 10/26/21 Attending physician: Jamie Powell Consults: 10/25/21 13:30 Consult Physician Routine Consulting Provider: Ari Montano Consult Reason/Comments: Medical management Do you want consulting provider notified?: Yes Primary care physician: Ari Montano - Discharge Diagnosis(es) (1) Primary osteoarthritis of right knee Current Visit: Yes Status: Acute (2) Status post right knee replacement Current Visit: Yes Status: Acute Hospital Course: This is a pleasant 66-year-old male last seen in our office with complaints of right knee pain. Patient has known history of degenerative arthritis of the right knee and presented to discuss options. After discussion and consideration, patient elected to proceed with a total knee arthroplasty of the right knee. The patient was seen preoperatively and medically cleared for surgery by his primary care physician. The patient was admitted to [facility] and underwent right total knee arthroplasty on 10/25/[address] Powell. The procedure was performed without complications or sequelae. The patient has done well postoperatively. The patient was seen and evaluated at bedside today and denies any new complaints. Pain is reasonably controlled. Dressing is clean dry and intact. Incision looks fine with no erythema or active drainage. The hemovac drain was removed without difficulty and tip was intact. Calf is soft and nontender. The patient has full foot and ankle motion without difficulty. Patient's right lower extremity is neurovascular intact. Patient is orthopedically stable for discharge to home today. Pertinent Studies: Laboratory Tests 10/26/21 03:46 WBC 16.44 H RBC 4.27 L Hgb 12.1 L Hct 36.8 L Neutrophils # 14.44 H Lymphocytes # 0.83 L Monocytes # 1.11 H Eosinophils # 0 L Patient Condition at Discharge: Stable Plan - Discharge Summary Discharge Rx Participant: Yes New Discharge Prescriptions: New Aspirin [Adult Low Dose Aspirin EC] 81 mg PO BID #1 tab HYDROcodone/APAP 7.5-325MG [[place] 7.5-325] 1 - 2 tab PO Q6HR PRN #32 tab PRN Reason: Pain Sennosides-Docusate Sodium [Senokot-S] 1 tab PO BID #60 tablet Gabapentin [Neurontin] 300 mg PO BID 5 Days #10 cap Ondansetron Odt [Zofran Odt] 4 mg PO Q8HR PRN #14 tab PRN Reason: Nausea No Action allopurinoL [Zyloprim] 300 mg PO DAILY Valsartan/Hydrochlorothiazide [Valsartan-Hctz 160-12.5 mg Tab] 1 tab PO DAILY Ergocalciferol [Vitamin D2 (1250 Mcg = 82195 Iu)] 1,250 mcg PO WEEKLY Zinc 50 mg PO DAILY Discharge Medication List Valsartan/Hydrochlorothiazide [Valsartan-Hctz 160-12.5 mg Tab] 1 tab PO DAILY 06/03/16 [History] allopurinoL [Zyloprim] 300 mg PO DAILY 06/03/16 [History] Ergocalciferol [Vitamin D2 (1250 Mcg = 15136 Iu)] 1,250 mcg PO WEEKLY 10/23/21 [History] Zinc 50 mg PO DAILY 10/23/21 [History] Aspirin [Adult Low Dose Aspirin EC] 81 mg PO BID #1 tab 10/25/21 [Rx] Gabapentin [Neurontin] 300 mg PO BID 5 Days #10 cap 10/25/21 [Rx] HYDROcodone/APAP 7.5-325MG [[place] 7.5-325] 1 - 2 tab PO Q6HR PRN #32 tab 10/25/21 [Rx] Ondansetron Odt [Zofran Odt] 4 mg PO Q8HR PRN #14 tab 10/25/21 [Rx] Sennosides-Docusate Sodium [Senokot-S] 1 tab PO BID #60 tablet 10/25/21 [Rx] Follow up Appointment(s)/Referral(s): [facility], [NON-STAFF] - ([facility] will call you to schedule your in home physical therapy visits. ) Jamie Powell MD [Medical Doctor] - 2 Weeks Activity/Diet/Wound Care/Special Instructions: May bear wt as tolerated w walker. May shower 2 days post op. Leave Optifoam dressing intact 7 days. Discharge Disposition: HOME WITH HOME HEALTH SERVICES
--- NOTE | 2021-10-26 14:11 | P.HPIM ---
History of Present Illness H&P Date: 10/26/21 Chief Complaint: Elective total knee replacement Elective right total knee arthroplasty, patient was admitted awake and alert for same underwent right total knee arthroplasty secondary to severe arthritic process Postoperative consultation and evaluation were unremarkable Review of Systems Cardiovascular: Reports as per HPI Respiratory: Reports as per HPI Gastrointestinal: Reports as per HPI Genitourinary: Reports as per HPI Musculoskeletal: Reports limitation of motion, Reports muscle weakness, Reports myalgias (Significant right knee arthritis arthrosis with pain and reduction of range of motion) Integumentary: Reports as per HPI Neurological: Reports as per HPI Past Medical History Past Medical History: Cancer, Hypertension, Osteoarthritis (OA) Additional Past Medical History / Comment(s): gout, hx. kidney cancer History of Any Multi-Drug Resistant Organisms: None Reported Past Surgical History: Joint Replacement, Orthopedic Surgery Additional Past Surgical History / Comment(s): hand surg., arthroscopy x1 left knee replacement, ORIF left femur, right nephrectomy Past Anesthesia/Blood Transfusion Reactions: No Reported Reaction Past Psychological History: No Psychological Hx Reported Smoking Status: Smoker, current status unknown Past Alcohol Use History: Occasional Past Drug Use History: None Reported - Past Family History Mother Family Medical History: No Reported History Medications and Allergies Home Medications Medication Instructions Recorded Confirmed Type Valsartan/Hydrochlorothiazide 1 tab PO DAILY 06/03/16 10/23/21 History [Valsartan-Hctz 160-12.5 mg Tab] allopurinoL [Zyloprim] 300 mg PO DAILY 06/03/16 10/23/21 History Ergocalciferol [Vitamin D2 (1250 1,250 mcg PO WEEKLY 10/23/21 10/23/21 History Mcg = 85071 Iu)] Zinc 50 mg PO DAILY 10/23/21 10/23/21 History Aspirin [Adult Low Dose Aspirin EC] 81 mg PO BID #1 tab 10/25/21 Rx Gabapentin [Neurontin] 300 mg PO BID 5 Days #10 cap 10/25/21 Rx HYDROcodone/APAP 7.5-325MG [[place] 1 - 2 tab PO Q6HR PRN #32 tab 10/25/21 Rx 7.5-325] Ondansetron Odt [Zofran Odt] 4 mg PO Q8HR PRN #14 tab 10/25/21 Rx Sennosides-Docusate Sodium 1 tab PO BID #60 tablet 10/25/21 Rx [Senokot-S] Allergies Allergy/AdvReac Type Severity Reaction Status Date / Time No Known Allergies Allergy Verified 10/23/21 14:08 Physical Exam Osteopathic Statement: *. No significant issues noted on an osteopathic structural exam other than those noted in the History and Physical/Consult. Vitals: Vital Signs Temp Pulse Pulse Resp BP BP Pulse Ox 10/26/21 07:18 97.4 F L 66 18 124/67 97 10/26/21 00:57 97.9 F 72 16 116/70 95 10/25/21 19:17 98.2 F 100 16 143/74 97 10/25/21 15:48 97.7 F 85 18 131/81 96 10/25/21 15:01 80 16 113/66 97 10/25/21 14:47 79 1 L 124/72 97 10/25/21 14:30 75 18 119/63 95 10/25/21 14:17 72 18 119/63 92 L 10/25/21 14:00 69 18 121/64 92 L Intake and Output 10/25/21 10/26/21 10/26/21 22:59 06:59 14:59 Intake Total 180 1200 Output Total 200 1140 Balance -20 60 Intake: Intake, IV Titration 1200 Amount Lactated Ringers 1,000 ml 1100 @ 100 mls/hr IV .Q10H [facility] Rx#:[id number] ceFAZolin 2 gm In Sodium 100 Chloride 0.9% 50 ml @ 100 mls/hr IVPB Q8H [facility] Rx#: [id number] Oral 180 Output: Drainage 40 Right Knee 40 Urine 200 1100 Other: Voiding Method Toilet # Bowel Movements 0 General: [Patient awake, alert and oriented times 3. Patient in no acute distress.] HEENT: [PERRL. EOMI. No pharyngeal erythema or exudate.] Neck: [No adenopathy.] Cardiac: [Heart regular in rate and rhythm. No S3. No S4. No clicks, rubs. No murmur.] Lungs: [Clear to auscultation bilaterally.] Abdomen: [No mass. No organomegaly. Bowel sounds presnt and normoactive in all 4 quadrants.] Extremes: Dressing right knee mild postop swelling dressing appears clean and dry : Normal male genitalia Musculoskeletal: [No joint erythema, edema or tenderness.] Skin: [No rash.] Neurologic: [No lateralizing deficits. CN II - XII grossly intact.] Lymphatic: [No adenopathy.] Results CBC & Chem 7: 10/26/21 03:46 Labs: Abnormal Lab Results - Last 24 Hours (Table) 10/26/21 Range/Units 03:46 WBC 16.44 H (4.50-10.00) X 10*3/uL RBC 4.27 L (4.40-5.60) X 10*6/uL Hgb 12.1 L (13.0-17.0) g/dL Hct 36.8 L (39.6-50.0) % Neutrophils # 14.44 H (1.80-7.70) X 10*3/uL Lymphocytes # 0.83 L (0.90-5.00) X 10*3/uL Monocytes # 1.11 H (0.20-1.00) X 10*3/uL Eosinophils # 0 L (0.04-0.35) X 10*3/uL Thrombosis Risk Factor Assmnt - Choose All That Apply Each Factor Represents 1 point: Obesity (BMI >25) Each Risk Factor Represents 2 Points: Age 61-74 years Each Risk Factor Represents 5 Points: Elective major lower extremity arthoplasty Thrombosis Risk Factor Assessment Total Risk Factor Score: 8 Thrombosis Risk Factor Assessment Level: High Risk Assessment and Plan (1) Primary osteoarthritis of right knee Status: Acute Code(s): M17.11 - UNILATERAL PRIMARY OSTEOARTHRITIS, RIGHT KNEE SNOMED Code(s): 893898491793733 (2) Status post right knee replacement Status: Acute Code(s): Z96.651 - PRESENCE OF RIGHT ARTIFICIAL KNEE JOINT SNOMED Code(s): 8220129533914 (3) Status post total knee replacement, left Status: Acute Priority: Medium Code(s): Z96.652 - PRESENCE OF LEFT ARTIFICIAL KNEE JOINT SNOMED Code(s): 2514102247140 Plan: Status post total right knee arthroplasty Patient doing well Blood pressure well controlled We'll continue to follow as outpatient Time with Patient: Greater than 30
== END 2021-10-26 13:21 | disposition home health service (06) ==
LOC: OR 08:48 → 4SSUR 13:24 → OR 10-26 13:21
PROVIDERS: ATTEND Orthopaedic Surgery
DX: M17.11 Unilateral primary osteoarthritis, right knee (principal); I10 Essential (primary) hypertension; M19.90 Unspecified osteoarthritis, unspecified site; Z85.528 Personal history of other malignant neoplasm of kidney; M10.9 Gout, unspecified; Z96.652 Presence of left artificial knee joint; Z20.822 Contact with and (suspected) exposure to COVID-19; Z98.890 Other specified postprocedural states; H91.90 Unspecified hearing loss, unspecified ear; R26.81 Unsteadiness on feet; Z97.3 Presence of spectacles and contact lenses; Z83.3 Family history of diabetes mellitus; Z82.49 Family history of ischemic heart disease and other diseases of the circulatory system; Z79.899 Other long term (current) drug therapy
CPT/HCPCS: 97116; 97162; 64447; 64999; 76942; 88305; 85025; 88311; 87635; 73560; 27447; C1776; C1713; J2250; J3370; J1100; J0690 ×3; J2405; J2001; J3010; J1170 ×2; J2795; J1885; J0330; J2704

== ENCOUNTER → 2022-08-23 | Outpatient (CLI) | payer BC ==
[2022-08-23 11:59] LABS: Basophils # (A) 0.01 X 10*3/uL (0.00-0.10); Basophils % (A) 0.2 %; Eosinophils # (A) 0.12 X 10*3/uL (0.04-0.35); Eosinophils % (A) 1.9 %; HCT 41.8 % (39.6-50.0); Immature Grans, Automated 0.3 %; Lymphocytes # (A) 1.12 X 10*3/uL (0.90-5.00); Lymphocytes % (A) 17.9 %; MCH 28.3 pg (27.0-32.0); MCHC 33.5 g/dL (32.0-37.0); MCV 84.4 fL (80.0-97.0); Mean Platelet Volume 9.6 fL (9.5-12.2); Monocytes # (A) 0.82 X 10*3/uL (0.20-1.00); Monocytes % (A) 13.1 %; NRBC Per 100 WBC 0 /100 WBCS (0.0-0.0); Neutrophils # (A) 4.15 X 10*3/uL (1.80-7.70); Neutrophils % (A) 66.6 %; Platelet Count 230 X 10*3/uL (140-440); RBC 4.95 X 10*6/uL (4.40-5.60); RDW 13.6 % (11.5-14.5); WBC 6.24 X 10*3/uL (4.50-10.00)
[2022-08-23 12:18] LABS: ALT 26 U/L (10-49); AST 24 U/L (14-35); African American GFR (CKD) 54.1 (60.0-200.0); Albumin/Globulin Ratio 1.77 (1.60-3.17); Alkaline Phosphatase 90 U/L (41-126); BUN/Creat Ratio 18.57 Ratio (12.00-20.00); Blood Urea Nitrogen 28.6 mg/dL (9.0-27.0); Calcium 8.6 mg/dL (8.7-10.3); Carbon Dioxide 25.9 mmol/L (20.0-27.5); Chloride 106 mmol/L (96-109); Chol/HDL Ratio 4.61 Ratio; Globulin 2.3 g/dL (1.6-3.3); Glucose 98 mg/dL (70-110); LDL Cholesterol,Calculated 64.9 mg/dL (0.0-131.0); Non-African American GFR(CKD) 46.7 (60.0-200.0); Potassium 4.6 mmol/L (3.5-5.5); Sodium 142 mmol/L (135-145); Total Protein 6.3 g/dL (6.2-8.2); Uric Acid 7.3 mg/dL (3.7-8.7)
== END | disposition home or self-care (01) ==
LOC: LABWHC1 07:58
PROVIDERS: ATTEND Family Medicine
DX: Z12.5 Encounter for screening for malignant neoplasm of prostate (principal); Z13.220 Encounter for screening for lipoid disorders; Z13.29 Encounter for screening for other suspected endocrine disorder; Z11.59 Encounter for screening for other viral diseases; M1A.00X0 Idiopathic chronic gout, unspecified site, without tophus (tophi)
CPT/HCPCS: 36415; 80053; 80061; 84153; 84443; 84550; 85025; 86803

== ENCOUNTER → 2022-09-23 | Outpatient (CLI) | payer BC ==
--- NOTE | 2022-09-23 21:08 | US ---
EXAMINATION TYPE: US scrotum with doppler. Grayscale and color Doppler Duplex imaging performed of cornelius stapleton scrotum. 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 Hx of vasectomy 35 years ago. Right testicle appears e nlarged per patient. Patient is in no pain. EXAM MEASUREMENTS: TESTICLES: Right Testicle: 4.0 x 2.7 x 2.6 cm Left Testicle: 3.6 x 2.3 x 2.3 cm EPIDIDYMIS HEAD: Right Epididymis: 1.3 x 1.6 x 1.3 cm Left Epididymis: Unable to visualize Doppler performed to assess for testicular vascularity; bilateral color flow and waveforms are seen. Presence of hydroceles: Yes, right: 5.7 x 6.2 x 3.4 cm. Left: 1.4 x 1.7 x 0.7 cm. Presence of varicoceles: Vessels appear prominent lateral to the left testicle. Skin thickness measured at 1.0 cm. IMPRESSION: 1. Large right and trace/small right hydrocele. 2. Appropriate arterial and venous spectral waveforms to the testes. 3. No evidence of testicular mass.
== END | disposition home or self-care (01) ==
LOC: RADUSWWP 16:17
PROVIDERS: ATTEND Family Medicine
DX: N43.3 Hydrocele, unspecified (principal); N44.2 Benign cyst of testis
CPT/HCPCS: 76870; 93975

== ENCOUNTER 2022-12-30 16:33 | Observation (INO) | payer BC ==
[2022-12-30] MEDS ORDERED: ASPIRIN 81 MG PO STA (16:58)
[2022-12-30] MEDS ORDERED: NITROGLYCERIN OINT 1 INCH/GM PACKET TOPICAL STA (16:58)
--- NOTE | 2022-12-30 17:00 | ED ---
General Adult HPI - General Chief complaint: Chest Pain Stated complaint: Chest Pain Time Seen by Provider: 12/30/22 16:49 Source: patient, family, RN notes reviewed Mode of arrival: ambulatory Limitations: no limitations - History of Present Illness Initial comments: Patient is a pleasant 67-year-old male presenting to the emergency department with concern with chest discomfort. Onset of symptoms was a few hours ago. Patient was not anything stridorous at that time. Discomfort is mild and described as an ache. Patient has some very mild associated dyspnea. Patient did have similar symptoms around 10 years ago with negative workup at that time. No associated nausea or vomiting. No associated diaphoresis. - Related Data Home Medications Medication Instructions Recorded Confirmed Valsartan/Hydrochlorothiazide 1 tab PO DAILY 06/03/16 12/30/22 [Valsartan-Hctz 160-12.5 mg Tab] allopurinoL [Zyloprim] 300 mg PO DAILY 06/03/16 12/30/22 Allergies Allergy/AdvReac Type Severity Reaction Status Date / Time No Known Allergies Allergy Verified 12/30/22 17:56 Review of Systems ROS Statement: Those systems with pertinent positive or pertinent negative responses have been documented in the HPI. ROS Other: All systems not noted in ROS Statement are negative. Constitutional: Denies: fever Eyes: Denies: eye pain ENT: Denies: ear pain Respiratory: Reports: as per HPI Cardiovascular: Reports: as per HPI, chest pain Endocrine: Denies: fatigue Gastrointestinal: Denies: abdominal pain Genitourinary: Denies: dysuria Musculoskeletal: Denies: back pain Skin: Denies: rash Neurological: Denies: weakness Past Medical History Past Medical History: Hypertension Additional Past Medical History / Comment(s): gout History of Any Multi-Drug Resistant Organisms: None Reported Past Surgical History: Joint Replacement, Orthopedic Surgery Additional Past Surgical History / Comment(s): hand surg., arthroscopy x1 left knee replacement, ORIF left femur, right nephrectomy Past Anesthesia/Blood Transfusion Reactions: No Reported Reaction Past Psychological History: No Psychological Hx Reported Smoking Status: Smoker, current status unknown Past Alcohol Use History: Occasional Past Drug Use History: None Reported - Past Family History Mother Family Medical History: No Reported History General Exam Limitations: no limitations General appearance: alert, in no apparent distress Head exam: Present: normocephalic Eye exam: Present: normal appearance Neck exam: Present: normal inspection Respiratory exam: Present: normal lung sounds bilaterally. Absent: chest wall tenderness Cardiovascular Exam: Present: regular rate, normal rhythm Expanded Peripheral pulses: 2+: Radial (R), Radial (L), Posterior Tibialis (R), Posterior Tibialis (L), Dorsalis Pedis (R), Dorsalis Pedis (L) GI/Abdominal exam: Present: soft. Absent: tenderness Extremities exam: Present: normal inspection. Absent: pedal edema, calf tenderness Neurological exam: Present: alert Psychiatric exam: Present: normal affect, normal mood Skin exam: Present: normal color Course Vital Signs 12/30/22 12/30/22 16:42 16:55 Temperature 99.2 F Pulse Rate 62 65 Respiratory 18 20 Rate Blood Pressure 171/80 151/92 O2 Sat by Pulse 97 98 Oximetry EKG Findings - EKG Results: EKG: interpreted by PÉREZD, sinus rhythm, normal axis, normal QRS, normal ST/T Medical Decision Making - Medical Decision Making Was pt. sent in by a medical professional or institution (Dr. PA, SCHOOL ADMISSIONS REPRESENTATIVE, urgent care, hospital, or [facility]...) When possible be specific @ -No Did you speak to anyone other than the patient for history (EMS, parent, family, police, friend...)? What history was obtained from this source @ - is present and helps confirm history Did you review nursing and triage notes (agree or disagree)? Why? @ -I reviewed and agree with nursing and triage notes Were old charts reviewed (outside hosp., previous admission, EMS record, old EKG, old radiological studies, urgent care reports/EKG's, [facility] records)? Report findings @ -No old charts were reviewed Differential Diagnosis (chest pain, altered mental status, abdominal pain women, abdominal pain men, vaginal bleeding, weakness, fever, dyspnea, syncope, headache, dizziness, GI bleed, back pain, seizure, CVA, palpatations, mental health)? @ -Differential Chest Pain: Stable Angina, Unstable Angina, STEMI, NSTEMI Aortic Dissection, Pneumothorax, Musculoskeletal, Esophageal Spasm GERD, Cholecystitis, Pancreatitis, Zoster, this is not meant to be an all-inclusive list. EKG interpreted by me (3pts min.). @ -As above X-rays interpreted by me (1pt min.). @ -Chest x-ray shows no acute process CT interpreted by me (1pt min.). @ -None done U/S interpreted by me (1pt. min.). @ -None done What testing was considered but not performed or refused? (CT, X-rays, U/S, labs)? Why? @ -None What meds were considered but not given or refused? Why? @ -None Did you discuss the management of the patient with other professionals (professionals i.e. Dr., PA, SCHOOL ADMISSIONS REPRESENTATIVE, lab, RT, psych nurse, bilingual social worker, lithographic camera operator, teacher, asset protection officer, pillowcase sewer)? Give summary @ -Case was discussed with Dr. Pham, who will admit. Was smoking cessation discussed for >3mins.? @ -No Was critical care preformed (if so, how long)? @ -No Were there social determinants of health that impacted care today? How? (Ho melessness, low income, unemployed, alcoholism, drug addiction, transportation, low edu. Level, literacy, decrease access to med. care, halfway, rehab)? @ -No Was there de-escalation of care discussed even if they declined (Discuss DNR or withdrawal of care, Hospice)? DNR status @ -No What co-morbidities impacted this encounter? (DM, HTN, Smoking, COPD, CAD, Cancer, CVA, ARF, Chemo, Hep., AIDS, mental health diagnosis, sleep apnea, morbid obesity)? @ -None Was patient admitted / discharged? Hospital course, mention meds given and route, prescriptions, significant lab abnormalities, going to OR and other pertinent info. @ -Patient reevaluated and further improved, near resolved. Patient and family are updated on results and plan. Case discussed with Dr. Pham, who will admit. Patient will be held with cardiac consult. Undiagnosed new problem with uncertain prognosis? @ -No Drug Therapy requiring intensive monitoring for toxicity (Heparin, Nitro, Insulin, Cardizem)? @ -No Were any procedures done? @ -No Diagnosis/symptom? @ -Chest pain Acute, or Chronic, or Acute on Chronic? @ -Acute Uncomplicated (without systemic symptoms) or Complicated (systemic symptoms)? @ -default Side effects of treatment? @ -No Exacerbation, Progression, or Severe Exacerbation? @ -No Poses a threat to life or bodily function? How? (Chest pain, [place], [place], pneumonia, PE, COPD, DKA, ARF, appy, cholecystitis, CVA, Diverticulitis, Homicidal, Suicidal, threat to staff... and all critical care pts) @ -No - Lab Data Result diagrams: 12/30/22 17:07 12/30/22 17:07 Lab Results 12/30/22 12/30/22 12/30/22 Range/Units 17:07 17:07 17:07 WBC 8.3 (3.8-10.6) k/uL RBC 5.17 (4.30-5.90) m/uL Hgb 14.6 (13.0-17.5) gm/dL Hct 42.6 (39.0-53.0) % MCV 82.5 (80.0-100.0) fL MCH 28.3 (25.0-35.0) pg MCHC 34.3 (31.0-37.0) g/dL RDW 14.3 (11.5-15.5) % Plt Count 197 (150-450) k/uL MPV 7.2 Neutrophils % 70 % Lymphocytes % 19 % Monocytes % 6 % Eosinophils % 2 % Basophils % 0 % Neutrophils # 5.8 (1.3-7.7) k/uL Lymphocytes # 1.6 (1.0-4.8) k/uL Monocytes # 0.5 (0-1.0) k/uL Eosinophils # 0.2 (0-0.7) k/uL Basophils # 0.0 (0-0.2) k/uL PT 10.2 (9.0-12.0) sec INR 1.0 (<1.2) APTT 25.3 (22.0-30.0) sec D-Dimer 0.36 (<0.60) mg/L FEU Sodium 139 (137-145) mmol/L Potassium 4.0 (3.5-5.1) mmol/L Chloride 102 (98-107) mmol/L Carbon Dioxide 29 (22-30) mmol/L Anion Gap 8 mmol/L BUN 33 H (9-20) mg/dL Creatinine 2.13 H (0.66-1.25) mg/dL Est GFR (CKD-EPI)AfAm 36 (>60 ml/min/1.73 sqM) Est GFR (CKD-EPI)NonAf 31 (>60 ml/min/1.73 sqM) Glucose 99 (74-99) mg/dL Calcium 9.1 (8.4-10.2) mg/dL Magnesium 2.0 (1.6-2.3) mg/dL Total Bilirubin 0.7 (0.2-1.3) mg/dL AST 24 (17-59) U/L ALT 23 (4-49) U/L Alkaline Phosphatase 84 (38-126) U/L Troponin I (0.000-0.034) ng/mL NT-Pro-B Natriuret Pep pg/mL Total Protein 7.3 (6.3-8.2) g/dL Albumin 4.3 (3.5-5.0) g/dL Influenza Type A (PCR) (Not Detectd) Influenza Type B (PCR) (Not Detectd) RSV (PCR) (Not Detectd) SARS-CoV-2 (PCR) (Not Detectd) 12/30/22 12/30/22 12/30/22 Range/Units 17:07 17:07 17:07 WBC (3.8-10.6) k/uL RBC (4.30-5.90) m/uL Hgb (13.0-17.5) gm/dL Hct (39.0-53.0) % MCV (80.0-100.0) fL MCH (25.0-35.0) pg MCHC (31.0-37.0) g/dL RDW (11.5-15.5) % Plt Count (150-450) k/uL MPV Neutrophils % % Lymphocytes % % Monocytes % % Eosinophils % % Basophils % % Neutrophils # (1.3-7.7) k/uL Lymphocytes # (1.0-4.8) k/uL Monocytes # (0-1.0) k/uL Eosinophils # (0-0.7) k/uL Basophils # (0-0.2) k/uL PT (9.0-12.0) sec INR (<1.2) APTT (22.0-30.0) sec D-Dimer (<0.60) mg/L FEU Sodium (137-145) mmol/L Potassium (3.5-5.1) mmol/L Chloride (98-107) mmol/L Carbon Dioxide (22-30) mmol/L Anion Gap mmol/L BUN (9-20) mg/dL Creatinine (0.66-1.25) mg/dL Est GFR (CKD-EPI)AfAm (>60 ml/min/1.73 sqM) Est GFR (CKD-EPI)NonAf (>60 ml/min/1.73 sqM) Glucose (74-99) mg/dL Calcium (8.4-10.2) mg/dL Magnesium (1.6-2.3) mg/dL Total Bilirubin (0.2-1.3) mg/dL AST (17-59) U/L ALT (4-49) U/L Alkaline Phosphatase (38-126) U/L Troponin I <0.012 (0.000-0.034) ng/mL NT-Pro-B Natriuret Pep 71 pg/mL Total Protein (6.3-8.2) g/dL Albumin (3.5-5.0) g/dL Influenza Type A (PCR) Not Detected (Not Detectd) Influenza Type B (PCR) Not Detected (Not Detectd) RSV (PCR) Not Detected (Not Detectd) SARS-CoV-2 (PCR) Not Detected (Not Detectd) Disposition Clinical Impression: Chest pain Disposition: ADMITTED IP TO THIS HOSP Is patient prescribed a controlled substance at d/c from ED?: No Referrals: Ari Montano MD [Primary Care Provider] - 1-2 days Time of Disposition: 19:43
[2022-12-30 17:23] LABS: Basophils % (A) 0 %; Eosinophils # (A) 0.2 k/uL (0-0.7); Eosinophils % (A) 2 %; HCT 42.6 % (39.0-53.0); HGB 14.6 gm/dL (13.0-17.5); Lymphocytes # (A) 1.6 k/uL (1.0-4.8); Lymphocytes % (A) 19 %; MCH 28.3 pg (25.0-35.0); MCHC 34.3 g/dL (31.0-37.0); MCV 82.5 fL (80.0-100.0); Mean Platelet Volume 7.2; Monocytes # (A) 0.5 k/uL (0-1.0); Monocytes % (A) 6 %; Neutrophils # (A) 5.8 k/uL (1.3-7.7); Neutrophils % (A) 70 %; Platelet Count 197 k/uL (150-450); RBC 5.17 m/uL (4.30-5.90); RDW 14.3 % (11.5-15.5); WBC 8.3 k/uL (3.8-10.6)
[2022-12-30 17:36] LABS: Partial Thromboplastin Time 25.3 sec (22.0-30.0); Prothrombin Time 10.2 sec (9.0-12.0)
--- NOTE | 2022-12-30 17:36 | XR ---
EXAMINATION TYPE: XR chest 2V DATE OF EXAM: 12/30/2022 5:22 PM COMPARISON: Chest radiographs from 05/20/2019 TECHNIQUE: XR chest 2V Frontal and lateral views of the chest. CLINICAL INDICATION:Male, 67 years old with history of Chest Pain; FINDINGS: Lungs/Pleura: There is no evidence of pleural effusion, focal consolidation, or pneumothorax. Pulmonary vascularity: Unremarkable. Heart/mediastinum: Cardiomediastinal silhouette is unremarkable. Musculoskeletal: No acute osseous pathology. IMPRESSION: No acute cardiopulmonary disease/process.
[2022-12-30 18:47] LABS: Albumin 4.3 g/dL (3.5-5.0); Calcium 9.1 mg/dL (8.4-10.2); Total Bilirubin 0.7 mg/dL (0.2-1.3); Total Protein 7.3 g/dL (6.3-8.2)
[2022-12-30] MEDS ORDERED: NITROGLYCERIN SL TABS 0.4 MG TAB SUBLINGUAL PRN (19:44)
[2022-12-30] MEDS: NITROGLYCERIN OINT 1 INCH/GM PACKET TOPICAL SCH (23:34)
[2022-12-31] MEDS: NITROGLYCERIN OINT 1 INCH/GM PACKET TOPICAL SCH (05:17)
[2022-12-31] MEDS ORDERED: CAFFEINE CITRATE 60 MG/3 ML VIAL IV PRN (08:00)
[2022-12-31] MEDS ORDERED: REGADENOSON 0.4 MG/5 ML SYRINGE IV PRN (08:00)
[2022-12-31] MEDS ORDERED: SODIUM CHLORIDE 0.9% 1,000 ML IV SCH (08:00)
[2022-12-31] MEDS ORDERED: AMINOPHYLLINE 500 MG/20 ML VIAL IV PRN (08:00)
[2022-12-31] MEDS ORDERED: allopurinoL 300 MG TAB PO SCH (09:00)
[2022-12-31] MEDS ORDERED: VALSARTAN 160 MG TAB PO SCH (09:00)
[2022-12-31] MEDS ORDERED: hydroCHLOROthiazide 12.5 MG CAP PO SCH (09:00)
[2022-12-31] MEDS ORDERED: ASPIRIN 325 MG TAB PO SCH (09:00)
[2022-12-31] MEDS ORDERED: ASPIRIN 81 MG PO SCH (09:00)
--- NOTE | 2022-12-31 09:53 | P.CRDCN ---
History of Present Illness History of present illness: HISTORY OF PRESENT ILLNESS: This is a 67-year-old male with a past medical history significant for hypertension. Patient does not follow with a fabric normalizer. We have been asked to see the patient in consultation for chest pain. Patient examined at the bedside. Patient states yesterday he began having chest pain when he was walking. He reports the pain felt like a dull ache in the middle of his chest and also into his left shoulder and arm. He states the pain was intermittent. He relates that there was nothing specific that would bring on the pain. He denied having any shortness of breath but reports at times he feels as though he cannot take a full breath. At the time of examination, the patient denies any chest pain or pressure. * EKG reveals sinus mechanism with nonspecific ST-T wave changes * Chest xray negative for acute process * Laboratory data: WBC 8.3. Hemoglobin 14.6. Platelet count 197. D-dimer 0.36. Sodium 139. Potassium 4.0. B UN 33. Creatinine 2.13. Troponin negative 3. ProBNP 71. * Current home cardiac medications include valsartan-hydrochlorothiazide 160- 12.5 milligrams daily REVIEW OF SYSTEMS: At the time of my exam: CONSTITUTIONAL: Denies fever or chills. HEENT: Denies blurred vision, vision changes, or eye pain. Denies hemoptysis CARDIOVASCULAR: Denies chest pain. Denies orthopnea. Denies PND. Denies palpitations RESPIRATORY: Denies shortness of breath. GASTROINTESTINAL: Denies abdominal pain. Denies nausea or vomiting. HEMATOLOGIC: Denies bleeding disorders. GENITOURINARY: Denies any blood in urine. SKIN: Denies pruitis. Denies rash. PHYSICAL EXAM: VITAL SIGNS: Reviewed. GENERAL: Well-developed in no acute distress. HEENT: Head is normocephalic. Pupils are equal, round. Sclerae anicteric. Mucous membranes of the mouth are moist. Neck supple. No JVD or thyromegaly LUNGS: Respirations even and unlabored. Lungs essentially clear to auscultation bilaterally. HEART: Regular rate and rhythm. S1 and S2 heard. ABDOMEN: Soft. Nondistended. Nontender. EXTREMITIES: Normal range of motion. No clubbing or cyanosis. Peripheral pulses intact. No lower extremity edema NEUROLOGIC: Awake and alert. Oriented x 3. ASSESSMENT: Chest pain, troponins negative 3 Hypertension Acute on chronic kidney disease History of right nephrectomy History of gout PLAN: An acute coronary event has been ruled out Obtain 2-D echo to assess cardiac structure and function Hold valsartanhydrochlorothiazide Begin IV fluid hydration Monitor kidney function Patient to undergo Lexiscan stress test today Further recommendations pending patient's course Nurse practitioner note has been reviewed by physician. Signing provider agrees with the documented findings, assessment, and plan of care. Past Medical History Past Medical History: Hypertension Additional Past Medical History / Comment(s): gout History of Any Multi-Drug Resistant Organisms: None Reported Past Surgical History: Joint Replacement, Orthopedic Surgery Additional Past Surgical History / Comment(s): hand surg., arthroscopy x1 left knee replacement, ORIF left femur, right nephrectomy Past Anesthesia/Blood Transfusion Reactions: No Reported Reaction Past Psychological History: No Psychological Hx Reported Smoking Status: Smoker, current status unknown Past Alcohol Use History: Occasional Past Drug Use History: None Reported - Past Family History Mother Family Medical History: No Reported History Medications and Allergies Home Medications Medication Instructions Recorded Confirmed Type Valsartan/Hydrochlorothiazide 1 tab PO DAILY 06/03/16 12/30/22 History [Valsartan-Hctz 160-12.5 mg Tab] allopurinoL [Zyloprim] 300 mg PO DAILY 06/03/16 12/30/22 History Allergies Allergy/AdvReac Type Severity Reaction Status Date / Time No Known Allergies Allergy Verified 12/30/22 17:56 Physical Exam Vitals: Vital Signs Temp Pulse Pulse Resp BP BP Pulse Ox 12/31/22 06:44 98.1 F 61 17 120/73 97 12/31/22 02:19 97.6 F 91 17 103/63 99 12/30/22 21:40 98.2 F 65 16 126/72 95 12/30/22 20:00 61 20 126/79 94 L 12/30/22 19:30 62 20 123/65 95 12/30/22 19:00 111/72 12/30/22 18:30 62 18 128/95 97 12/30/22 18:00 61 16 145/108 98 12/30/22 17:30 61 14 145/83 96 12/30/22 17:00 60 14 151/92 12/30/22 16:55 65 20 151/92 98 12/30/22 16:42 99.2 F 62 18 171/80 97 Intake and Output 12/30/22 12/31/22 12/31/22 22:59 06:59 14:59 Other: # Voids 1 Weight 102.058 kg Results 12/30/22 17:07 12/30/22 17:07 Cardiac Enzymes 12/30/22 12/30/22 12/30/22 Range/Units 17:07 17:07 20:30 AST 24 (17-59) U/L Troponin I <0.012 <0.012 (0.000-0.034) ng/mL 12/31/22 Range/Units 00:08 AST (17-59) U/L Troponin I <0.012 (0.000-0.034) ng/mL Coagulation 12/30/22 Range/Units 17:07 PT 10.2 (9.0-12.0) sec APTT 25.3 (22.0-30.0) sec CBC 12/30/22 Range/Units 17:07 WBC 8.3 (3.8-10.6) k/uL RBC 5.17 (4.30-5.90) m/uL Hgb 14.6 (13.0-17.5) gm/dL Hct 42.6 (39.0-53.0) % Plt Count 197 (150-450) k/uL Comprehensive Metabolic Panel 12/30/22 Range/Units 17:07 Sodium 139 (137-145) mmol/L Potassium 4.0 (3.5-5.1) mmol/L Chloride 102 (98-107) mmol/L Carbon Dioxide 29 (22-30) mmol/L BUN 33 H (9-20) mg/dL Creatinine 2.13 H (0.66-1.25) mg/dL Glucose 99 (74-99) mg/dL Calcium 9.1 (8.4-10.2) mg/dL AST 24 (17-59) U/L ALT 23 (4-49) U/L Alkaline Phosphatase 84 (38-126) U/L Total Protein 7.3 (6.3-8.2) g/dL Albumin 4.3 (3.5-5.0) g/dL Current Medications Generic Name Dose Route Start Last Admin Trade Name Freq PRN Reason Stop Dose Admin Allopurinol 300 mg 12/31/22 09:00 Allopurinol 300 Mg Tab PO DAILY [facility] Aspirin 325 mg 12/31/22 09:00 Aspirin 325 Mg Tab PO DAILY [facility] Hydrochlorothiazide 12.5 mg 12/31/22 09:00 Hydrochlorothiazide 12.5 Mg Cap PO DAILY [facility] Nitroglycerin 0.4 mg 12/30/22 19:44 Nitroglycerin Sl Tabs 0.4 Mg Tab SUBLINGUAL Q5M PRN Chest Pain Nitroglycerin 1 inch 12/31/22 00:00 12/31/22 05:17 Nitroglycerin Oint 1 Inch/Gm Packet TOPICAL Not Given Q6HR [facility] Valsartan 160 mg 12/31/22 09:00 Valsartan 160 Mg Tab PO DAILY [facility] Intake and Output 12/30/22 12/31/22 12/31/22 22:59 06:59 14:59 Other: # Voids 1 Weight 102.058 kg 12/30/22 17:07 12/30/22 17:07
[2022-12-31] MEDS ORDERED: PANTOPRAZOLE 40 MG/10 ML VIAL IVP SCH (10:00)
[2022-12-31] MEDS ORDERED: METOPROLOL TARTRATE 25 MG TAB PO SCH (11:00)
[2022-12-31 11:30] LABS: Chol/HDL Ratio 5.45 Ratio; LDL Cholesterol,Calculated 89.4 mg/dL (0.0-131.0)
[2022-12-31 11:36] LABS: African American GFR (CKD) 40 (>60 ml/min/1.73 sqM); Anion Gap 7 mmol/L; Blood Urea Nitrogen 34 mg/dL (9-20); Calcium 8.5 mg/dL (8.4-10.2); Carbon Dioxide 27 mmol/L (22-30); Chloride 105 mmol/L (98-107); Glucose 112 mg/dL (74-99); Non-African American GFR(CKD) 35 (>60 ml/min/1.73 sqM); Potassium 3.7 mmol/L (3.5-5.1); Sodium 139 mmol/L (137-145)
[2022-12-31 12:15] VITALS: BP 151/76; PULSE 55; RESP 18; TEMP 97.6
--- NOTE | 2022-12-31 12:27 | NM ---
EXAMINATION TYPE: NM stress lexiscan cardiolite DATE OF EXAM: 12/31/2022 COMPARISON: NONE HISTORY: Chest pain TECHNIQUE: After the intravenous administration of 10.2 mCi Tc 99m Sestamibi - Cardiolite resting SP ECT images acquired 45 minutes post injection. The patient received 0.4mg Lexiscan, 26.1 mCi Tc 99m Sestamibi - Stress images obtained [address] injection FINDINGS: Review of stress and rest SPECT images demonstrates no distinct perfusion abnormality. Gated analysi s shows normal wall motion with an estimated left ventricular ejection fraction of 52 %. IMPRESSION: No scintigraphic evidence for reversible ischemia.
--- NOTE | 2022-12-31 12:50 | CA ---
Lexiscan Nuclear Stress Test Report Name: Dago Zelaya Exam Date: 12/31/2022 10:13 Exam Location: [place] [facility] Stress Ht (in): 67 Wt (lb): 225 BSA: 2.13 Ordering Phys: Mandy Sampson Referring Phys: TORY, Technologist: Mark Levy Age: 67 Gender: M : 1955 Procedure CPT: Indications: Reflex order-Stress test ICD-10 Codes: Patient History: Medications: Meds past 24 hrs: Pretest Chest Pain: STRESS TEST Lexiscan Protocol Exercise Duration (min:sec): 01:[address] Depressions (mm): Angina Score: Velázquez Score: Resting HR (bpm): 53 Peak HR (bpm): 82 Resting BP (mmHg): 116 / 58 Peak BP (mmHg): 122 / 60 MPHR: 154 Target HR: 131 % MPHR: 53 METS: 1.0 Total Dose: Peak Dose: Atropine: Double Product: 26023 BP Response: Stress Termination: INFUSION COMPLETE Stress Symptoms: NO SYMPTOMS Stress Summary: ECG ANALYSIS Resting ECG: Stress ECG: CONCLUSIONS Nondiagnostic stress testing Dr. Matthias Garcia MD (Electronically Signed) Final Date: 31 December 2022 12:49
--- NOTE | 2022-12-31 20:24 | P.HPIM ---
History of Present Illness H&P Date: 12/31/22 Chief Complaint: Chest pain This is 67-year-old gentleman, with past medical history significant for hypertension, right nephrectomy, nicotine dependence, morbid obesity, BMI 35.2 presented to the ER with left upper chest, left anterior and posterior shoulder discomfort radiating to across the top of his left arm,began yesterday while at work. Reports it was not painful, felt like a " pulled muscle" Patient works as a high-low sales route driver helper. Denies any heavy lifting. Denies exertional strain. Drove home from work place in [place]. Denies lightheadedness, dizziness, s hortness of breath or diaphoresis. Reports sometimes unable to "yawn fully". Denies nausea ,vomiting or abdominal pain. Denies syncope. Upon further questioning discovered yesterday patient had changed the brakes on his 's car, which consisted of pulling off the tires. EKG reported sinus bradycardia- sinus rhythm. Troponins negative 3. Afebrile, normal WBC. Hematology, coagulation/d-dimer unremarkable. Chemistry panel unremarkable with the exception of BUN 33, creatinine 2.13-currently 34, 1.97. Triglycerides 198, cholesterol 158, LDL 89, HDL 29. Serology did not detect influenza type A, type B, RSV, SARS/CoV-2. IV fluids initiated. Evaluated by cardiology and scheduled for echo and Lexiscan stress test. Denies chest pain, palpitations or shortness of breath. Denies lightheadedness, dizziness or focal deficits. Review of Systems ROS Statement: Those systems with pertinent positive or pertinent negative responses have been documented in the HPI. ROS Other: All systems not noted in ROS Statement are negative. Past Medical History Past Medical History: Hypertension Additional Past Medical History / Comment(s): gout History of Any Multi-Drug Resistant Organisms: None Reported Past Surgical History: Joint Replacement, Orthopedic Surgery Additional Past Surgical History / Comment(s): hand surg., arthroscopy x1 left knee replacement, ORIF left femur, right nephrectomy Past Anesthesia/Blood Transfusion Reactions: No Reported Reaction Past Psychological History: No Psychological Hx Reported Smoking Status: Smoker, current status unknown Past Alcohol Use History: Occasional Past Drug Use History: None Reported - Past Family History Mother Family Medical History: No Reported History Medications and Allergies Home Medications Medication Instructions Recorded Confirmed Type allopurinoL [Zyloprim] 300 mg PO DAILY 06/03/16 12/30/22 History Valsartan 160 mg PO DAILY #10 tab 12/31/22 Rx Allergies Allergy/AdvReac Type Severity Reaction Status Date / Time No Known Allergies Allergy Verified 12/30/22 17:56 Physical Exam Vitals: Vital Signs Temp Pulse Pulse Resp BP BP Pulse Ox 12/31/22 06:44 98.1 F 61 17 120/73 97 12/31/22 02:19 97.6 F 91 17 103/63 99 12/30/22 21:40 98.2 F 65 16 126/72 95 12/30/22 20:00 61 20 126/79 94 L 12/30/22 19:30 62 20 123/65 95 12/30/22 19:00 111/72 12/30/22 18:30 62 18 128/95 97 12/30/22 18:00 61 16 145/108 98 12/30/22 17:30 61 14 145/83 96 12/30/22 17:00 60 14 151/92 12/30/22 16:55 65 20 151/92 98 12/30/22 16:42 99.2 F 62 18 171/80 97 Intake and Output 12/30/22 12/31/22 12/31/22 22:59 06:59 14:59 Other: # Voids 1 Weight 102.058 kg PHYSICAL EXAM: VITAL SIGNS: [As above] GENERAL: Sitting up in bed, no acute distress HEENT: Atraumatic, normocephalic Conjunctivae normal. eyes normal. NECK: Supple, No JVD. No thyroid enlargement. No LNs CARDIOVASCULAR: S1, S2 regular. No murmur RESPIRATION: Unlabored, Breath sounds CTA,diminished in the bases. No rhonchi or crackles. No bronchial breathing. ABDOMEN: Soft, nondistended, nontender . No guarding. no masses palpable. No ascites, No hepatosplenomegaly.Bowel sounds heard. LEGS: No edema. no swelling PSYCHIATRY: Alert and oriented X3, mood and affect normal. NERVOUS SYSTEM: Cranial N 2-12 grossly normal.No focal deficits. Strength and sensation grossly intact.. Skin: Warm and dry, no rash Results CBC & Chem 7: 12/30/22 17:07 12/31/22 06:26 Labs: Abnormal Lab Results - Last 24 Hours (Table) 12/30/22 12/31/22 12/31/22 Range/Units 17:07 06:26 06:26 BUN 33 H 34 H (9-20) mg/dL Creatinine 2.13 H 1.97 H (0.66-1.25) mg/dL Glucose 112 H (74-99) mg/dL Triglycerides 198.00 H (0.00-149.00) mg/dL HDL Cholesterol 29.00 L (40.00-60.00) mg/dL Assessment and Plan Assessment: Chest pain, atypical, suspect muscle skeletal Acute on chronic renal failure, stage III. Baseline creatinine 1.5. History of right radical nephrectomy 2017 Hypertension History of Nicotine dependence-chewed tobacco, quit 1-1/2 years ago Plan: Continue on current medication regime ,monitoring and symptomatic treatment. IV fluid hydration with close monitoring of renal function. Echo/Lexiscan stress test pending. At DC, we'll continue to hold valsartan /HCTZ combo and prescribe valsartan plain, close monitoring of renal function. Triglycerides elevated with further recommendations in clinic with PCP. Patient will be discharged home today in a stable condition with guarded prognosis pending echo, Lexiscan stress test ,final DC recommendations and clearance per cardiology Discharge Medication List allopurinoL [Zyloprim] 300 mg PO DAILY 06/03/16 [History] Valsartan 160 mg PO DAILY #10 tab 12/31/22 [Rx] The impression and plan of care has been dictated as directed. : I performed a history and examination of this patient, discussed the same with the dictator. I agree with the dictator's note ,documented as a scribe. Any additional findings or plans will be noted.
--- NOTE | 2023-01-02 09:28 | CA ---
Transthoracic Echo Report Name: Dago Zelaya Age: 67 Gender: M : 1955 Exam Date: 12/31/2022 13:50 Exam Location: [facility] Ht (in): 67 Wt (lb): 225 Ordering Physician: Mandy Sampson Attending/Referring Phys: [id number], [employer] Techn[employer] Dejah Calvin RDCS Procedure CPT: Indications: LV function, CP Cardiac Hx: Technical Quality: Fair Contrast 1: Total Dose (mL): Contrast 2: Total Dose (mL): MEASUREMENTS (Male / Female) Normal Values 2D ECHO LV Diastolic Diameter PLAX 4.4 cm 4.2 - 5.9 / 3.9 - 5.3 cm LV Systolic Diameter PLAX 3.0 cm IVS Diastolic Thickness 1.1 cm 0.6 - 1.0 / 0.6 - 0.9 cm LVPW Diastolic Thickness 0.8 cm 0.6 - 1.0 / 0.6 - 0.9 cm LV Relative Wall Thickness 0.4 RV Internal Dim ED PLAX 3.8 cm LA Volume 59.7 cm??? 18 - 58 / 22 - 52 cm??? M-MODE Aortic Root Diameter MM 3.8 cm LA Systolic Diameter MM 4.7 cm LA Ao Ratio MM 1.2 AV Cusp Separation MM 2.2 cm DOPPLER AV Peak Velocity 140.5 cm/s AV Peak Gradient 7.9 mmHg AV Mean Velocity 106.1 cm/s AV Mean Gradient 4.8 mmHg AV Velocity Time Integral 36.8 cm LVOT Peak Velocity 81.6 cm/s LVOT Peak Gradient 2.7 mmHg LVOT Velocity Time Integral 21.1 cm MV Area PHT 3.4 cm??? Mitral E Point Velocity 89.2 cm/s Mitral A Point Velocity 69.8 cm/s Mitral E to A Ratio 1.3 MV Deceleration Time 222.5 ms MV E' Velocity 9.0 cm/s Mitral E to MV E' Ratio 9.9 TR Peak Velocity 275.2 cm/s TR Peak Gradient 30.3 mmHg Right Ventricular Systolic Press 33.4 mmHg FINDINGS Left Ventricle Mildly increased septal wall thickness. Normal left ventricular systolic function with no obvious regional wall motion abnormalities. Left ventricular cavity size normal. Left ventricular ejection fraction is estimated at 55-60 %. Right Ventricle Mild right ventricular dilatation. Right ventricular systolic pressure within normal limits. Right Atrium Normal right atrial size. Left Atrium Mildly increased left atrial volume. Mildly increased left atrial area. Mitral Valve Structurally normal mitral valve. No mitral stenosis. Mild mitral regurgitation. Aortic Valve Trileaflet aortic valve. No aortic valve stenosis or regurgitation. Tricuspid Valve Mild tricuspid regurgitation. Pulmonic Valve Trace pulmonic regurgitation. Pericardium No pericardial effusion. Normal pericardium. Aorta Normal size aortic root and proximal ascending aorta. CONCLUSIONS Normal LV systolic function Normal intracardiac valves Previewed by: Dr. Matthias Garcia MD (Electronically Signed) Final Date: 02 January 2023 09:27
== END 2022-12-31 15:30 | disposition home or self-care (01) ==
LOC: EC 16:33 → 6NMEDSUR 19:45
PROVIDERS: ADMIT Family Medicine; ATTEND Family Medicine
DX: R07.89 Other chest pain (principal); M10.9 Gout, unspecified; I12.9 Hypertensive chronic kidney disease with stage 1 through stage 4 chronic kidney disease, or unspecified chronic kidney disease; N18.30 Chronic kidney disease, stage 3 unspecified; E66.01 Morbid (severe) obesity due to excess calories; Z68.35 Body mass index [BMI] 35.0-35.9, adult; Z87.891 Personal history of nicotine dependence; Z79.899 Other long term (current) drug therapy; Z90.5 Acquired absence of kidney; Z20.822 Contact with and (suspected) exposure to COVID-19
CPT/HCPCS: 99285; 36415; 94760; 93005; 93017; 93306; 85379; 83880; 80061; 80053; 80048; 83735; 84484 ×2; 85025; 85610; 85730; 87636; 71046; 78452; G0378 ×2; A9500; J2785